=== PATIENT | female | born 1965 | race Caucasian/White ===

== ENCOUNTER 2020-10-12 15:22 | Outpatient (CLI) | payer BC, SELFPAY ==
--- NOTE | 2020-10-12 15:33 | ECG_ITS ---
Measurements Intervals [place] Rate: 60 P: 48 HI: 191 QRS: -7 QRSD: 96 T: 9 QT: 402 QTc: 403 Interpretive Statements SINUS RHYTHM POSSIBLE LEFT ATRIAL ENLARGEMENT INCOMPLETE RIGHT BUNDLE BRANCH BLOCK CONSIDER INFERIOR INFARCT, AGE INDETERMINATE ABNORMAL ECG Electronically Signed On 10-12-2020 16:02:58 CDT by Gabriele Parham D.O.
[2020-10-12 16:31] LABS: Hematocrit 40.5 % (37.0-47.0)
[2020-10-12 16:43] LABS: Albumin Level 4.4 g/dL (3.5-5.1); Estimated Glomerular Filt Rate > 60; Glucose 95 mg/dL (65-105)
[2020-10-12 16:44] LABS: Hemoglobin A1C 5.6 % (<5.7)
[2020-10-12 16:46] LABS: Urine Cotinine NEGATIVE
== END 2020-10-12 15:23 | disposition home or self-care (01) ==
LOC: ANHLAB 15:24
PROVIDERS: PCP Family Medicine; Visit Provider Orthopaedic Surgery
DX: Z01.818 Encounter for other preprocedural examination (principal); M17.11 Unilateral primary osteoarthritis, right knee; E78.5 Hyperlipidemia, unspecified; I45.10 Unspecified right bundle-branch block
CPT/HCPCS: 80307; 82040; 82565; 82947; 83036; 85014; 85018; 93005

== ENCOUNTER 2020-10-26 11:44 | Outpatient (CLI) | payer BC, SELFPAY ==
[2020-10-26 12:54] LABS: Basophils Percent Auto 0.3 % (0.2-1.2); Eosinophils Absolute Auto 0.1 K/mm3 (0-0.3); Hematocrit 42.5 % (37.0-47.0); Hemoglobin 13.8 g/dL (12.0-15.0); Immature Granulocyte Absolute 0.03 K/mm3 (0.00-0.031); Immature Granulocyte Percent A 0.2 % (0-0.5); Lymphocytes Absolute Auto 4.67 K/mm3 (0.9-3.2); Lymphocytes Percent Auto 37.6 % (18.3-44.2); Mean Corpuscular HGB Conc 32.5 g/dl (32-36); Mean Corpuscular Hemoglobin 29.9 pg (26-34); Mean Platelet Volume 10.2 fl (7.4-10.4); Monocytes Absolute Auto 0.7 K/mm3 (0.1-0.6); Monocytes Percent Auto 5.3 % (2.6-8.5); Neutrophils Absolute Auto 6.9 K/mm3 (1.3-6.7); Neutrophils Percent Auto 55.6 % (45.5-73.1); Platelet Count Result 350 k/mm3 (150-375); Red Blood Count 4.62 M/mm3 (4.2-5.4); Red Cell Distribution Width 13.1 % (11.5-14.5); White Blood Count 12.4 K/mm3 (4.5-10.0)
== END 2020-10-26 11:45 | disposition home or self-care (01) ==
LOC: ANHSURGERY 11:46
PROVIDERS: PCP Family Medicine; Visit Provider Orthopaedic Surgery
DX: Z01.812 Encounter for preprocedural laboratory examination (principal); M17.11 Unilateral primary osteoarthritis, right knee
CPT/HCPCS: 36415; 85025; 86850; 86900; 86901; 87081

== ENCOUNTER → 2020-11-05 09:38 | Outpatient (CLI) | payer BC, SELFPAY ==
[2020-11-05 19:16] LABS: SARS-CoV-2 RNA PCR Negative
== END ==
PROVIDERS: PCP Family Medicine; Visit Provider Orthopaedic Surgery
DX: Z01.812 Encounter for preprocedural laboratory examination (principal); Z20.822 Contact with and (suspected) exposure to COVID-19
CPT/HCPCS: C9803; U0003; U0005

== ENCOUNTER 2020-11-08 01:22 | Day surgery (SDC) | payer BC, SELFPAY ==
[2020-10-26 11:53] VITALS: BMI 34.9
[2020-10-26 12:27] VITALS: BP 131/82; PULSE 67; RESP 16; TEMP 36.4; O2SAT 99
[2020-11-08] VITALS (14 sets, daily range): BP systolic 110–154; BP diastolic 57–83; PULSE 55–80; RESP 12–18; TEMP 36.1–37; O2SAT 94–100; BMI 35.1
--- NOTE | ~2020-11-08 | XR_ITS ---
EXAMINATION: XR knee RT 2V DATE: 11/08/2020 10:11 INDICATION: Postoperative evaluation following right total knee arthroplasty. TECHNIQUE: Anteroposterior and lateral views of the right knee were obtained. COMPARISON: None. FINDINGS: Right total knee arthroplasty with patellar resurfacing appears well seated and in near anatomic alig nment. No fractures identified. Expected postoperative subcutaneous and intra-articular gas. IMPRESSION: 1. Right total knee arthroplasty, negative for postoperative purposes. Reviewed, dictated and finalized at location A.
[2020-11-08] MEDS: ACETAMINOPHEN 500 MG TABLET 1000 MG PO (06:29)
[2020-11-08] MEDS: LACTATED RINGERS 1,000 ML 30 ML IV CONT ×2 (06:29→10:00)
--- NOTE | 2020-11-08 06:52 | WPDANESEPPF ---
Anes - Initial Pre Proc Eval Procedure: Operation Date: 11/08/20 07:30 Proposed Procedures p Right Total Knee Arthroplasty - Rupesh Hernandez MD Date/Time: 11/08/20 06:52 Surgeon: Rupesh Hernandze MD Pre Op Diagnosis: Primary OA Right knee Patient Data Age: 55 Gender: F Height: 1.74 m Weight: 105.8 kg Last Vital Signs Temp 36.3 C L 11/08/20 06:37 Pulse 65 11/08/20 06:37 Resp 16 11/08/20 06:37 BP 125/76 11/08/20 06:37 Pulse Ox 100 11/08/20 06:37 Allergies Allergy/AdvReac Type Severity Reaction Status Date / Time Penicillins Allergy Severe HIVES Verified 11/08/20 05:53 Home Medications Medication Instructions Recorded Confirmed Type calcium carbonate-vitamin D3 250 1 tablet PO DAILY 09/13/20 11/08/20 History mg-125 unit tablet B soouowb-G-JI-min #26-soybean 2 tablet PO DAILY 10/26/20 11/08/20 History [Menopause Support] acetaminophen [Tylenol Arthritis 1,300 mg PO Q8H PRN 10/26/20 11/08/20 History Pain] loperamide [Imodium A-D] 2 mg PO QID PRN 10/26/20 11/08/20 History Patient hx anesthesia problems: none Family hx anesthesia problems: none PMFSH Past Medical History Medical History (Updated 10/12/20 @ 14:47 by Rupesh Hernandez MD) Anxiety disorder Arthritis Arthritis of both knees Hyperlipidemia Insomnia Surgical History Surgical History (Updated 09/30/20 @ 17:15 by Jaci Calvo) History of arthroscopic knee surgery (~2018) Rt History of back surgery (~2005) History of carpal tunnel surgery (~2002) Rt History of carpal tunnel surgery of left wrist (~2003) History of elbow surgery (~2003) Rt - Tendon Repair History of rotator cuff surgery (~05/2020) & Biceps Repair - Lt History of tonsillectomy (~1972) History of tubal ligation (~03/2000) Hx laparoscopic cholecystectomy Social History Social History (Updated 09/13/20 @ 14:47 by Lindsay Trammell, RT(R)) Smoking packs per day: 1 Smoking cigarettes per day: 20.0 Years smoked: 15 Smoking pack-years: 15.00 Smoking status: Former smoker Tobacco type: cigarettes Additional smoking assessment comments: DENIES ANY FORM OF TOBACCO USE Alcohol intake: current Drinks per week: 2 Substance use: current Substance use type: marijuana Other substance usage details: MARIJUANA GUMMIES. STARTED ABOUT 6 MONTHS AGO. 2 GUMMIES EVERY OTHER DAY Last use: 10/25/20 Living arrangements: with family Spiritual care concerns: No Anes - Eval Final PreProcedure Day of Procedure 11/08/20 06:52 Patient weight: obese Heart: regular rate and rhythm Lungs: clear to auscultation and normal air movement Airway: Mallampati scale class II Neurological: alert and oriented Last oral intake: >/= 8 hours ASA classification: II Emergent: no Anesthetic plan: proceed Anesthesia type and monitoring: general LMA and standard monitoring Informed Consent: The patient's anesthetic plan and its attendant risks and benefits were discussed with the patient/family/POA. Questions were solicited and answers provided to the satisfaction of the patient/family/POA.
[2020-11-08] MEDS: TRANEXAMIC ACID 1,000MG/ISO100 1,000 MG/100 ML BAG 200 MG IVPB (06:59)
--- NOTE | 2020-11-08 07:10 | WPDHPUPDATE1 ---
History and Physical Update Update Date/Time: 11/08/20 07:10 History and Physical has been reviewed, including an updated exam of the patient. There are NO changes in the patient's condition. Risks, benefits, and alternatives have been discussed and questions answered. Patient agrees to proceed with procedure.
--- NOTE | 2020-11-08 07:27 | WPDANESPNB ---
Anes - Peripheral Nerve Block Date/Time: 11/08/20 07:27 I have discussed with the patient/family/POA the placement of a peripheral nerve block for post-operative pain management, including associated risks, benefits, complications, and side effects. Alternative methods of post-operative analgesia were detailed. Questions were solicited and answers provided to the satisfaction of the patient/family/POA. Time-Out: A pre-procedural Time-Out was completed immediately before starting the procedure and confirmed: Patient Identification, Site, Procedure, Patient Position and the Availability of Requisite Equipment. Clinical Indications: Acute post-operative pain management requested by the operative surgeon. Nerve Block Insertion Note Anes-nerve block: adductor canal right Patient position: supine Skin prep: chlorhexidine Needle: 22 gauge, stimulating, insulated echogenic needle. Needle length: 80 mm Technique: ultrasound Injectate: bupivacaine 0.5% with epi 5 mcg/ml (30cc - no epi) Observations: tolerated well Complications: none Procedure start time:: 722 Procedure end time:: 725
[2020-11-08] MEDS: ceFAZolin 2 GM/D5W 50 ML 2 GM/50 ML BAG IVPB (07:30)
--- NOTE | 2020-11-08 09:42 | PM.PROC ---
Procedure Note - Detailed Date of procedure: 11/08/20 Pre-op diagnosis: Primary OA Right knee Post-op diagnosis: same Procedure performed: Total knee arthroplasty Description of procedure: Press fit high demand. Satisfactory bone quality. Mild medial release. Trochlear dysplasia. Standard bone resections. PCL quality very good. Implants: Taj Triathlon size 4 press-fit femur, size 5 Tritanium press fit tibia, 11mm CR X3, polyethylene insert, 35 mm asymmetric Tritanium metal backed patellar component. Anesthesia: GETA and regional (subsartorial nerve block) Surgeon: Rupesh Hernandez MD Customer Support Coordinator: Carlota Shirley PA-C Estimated blood loss (mL): 400 Drains: No Complications: None Condition: stable Disposition: PACU Findings: OPERATIVE DETAILS: The patient was given a nerve block preoperatively, and then brought to the operating room. A general anesthetic was administered. The leg was prepped and draped in the usual sterile fashion. The limb was elevated and the tourniquet inflated to 300 mmHg during initial exposure. A longitudinal incision was created along the medial border of the patella and patellar tendon, and trivector approach to the knee was performed. A moderate medial release was taken. The knee was then flexed. The osteophytes were carefully removed. The intramedullary guide was placed in the femoral canal. The distal femoral resection was then taken with the oscillating saw. The collateral ligaments were carefully protected. The tibia was carefully exposed. The jig was applied, and the proximal tibia was resected at 3 degrees according to preoperative plan. The knee was balanced in extension. Appropriate releases were taken where needed. The anterior cruciate ligament and meniscal remnants were removed. The posterior cruciate ligament was preserved. The patella was measured. Patellar resection was carried out with the oscillating saw. The lug holes drilled. The femur was sized and rotation assessed using a combination of gap balancing, posterior referencing, and the AP axis. The 4 in 1 cutting block was used to finish the femoral cuts after equal gaps were assured. The lug holes were drilled. The osteophytes were carefully removed from the back of the knee. The knee was copiously irrigated periodically throughout the procedure. The meniscal remnants were removed. The spacer block was used to confirm equal flexion and extension gaps. Further releases were performed as needed. The tibia was sized and broached. The bony surfaces were prepared for cementing with pulsatile lavage. The real tibial component was impacted into position followed by press fitting the femoral component. The patella component was press-fit. Patellar tracking was carefully assessed. No additional releases were required. The wound was closed with #1 Vycril suture, #2 Quill suture, 0-Quill suture, and 2-0 Quill suture followed by Steri-Strips. A sterile bulky dressing was applied. Meticulous hemostasis was maintained throughout the procedure. [The aquamantis device was utilized.] There were no complications. The patient was extubated and brought to the recovery room in stable condition after the application of sterile dressing with Adelso bandage.
[2020-11-08] MEDS: fentaNYL CITRATE INJ (*CRX) 100 MCG/2 ML VIAL 25 MCG IV PUSH ×8 (10:12→10:51)
--- NOTE | 2020-11-08 11:25 | ADMGEN ---
This patient, oSl Boateng, was admitted to 2 Medical Room 243-01 from PACU report received from Silvia BARNES. Patient/family oriented to hospital policies and general routines including ID bracelet, bed and alarms, visiting hours, pain management, procedures, bathroom and other care routines, personal items, smoking policy, room service/diet, and visiting hours. Information on how to activate the Rapid Response Team has been discussed. Patient/Family are encouraged to report perceived risks to care and to ask questions if they do not understand what they are told or what they should do.
[2020-11-08] MEDS: SODIUM CHLORIDE 0.9% IV 1,000 ML 125 ML IV CONT ×2 (11:32→20:05)
[2020-11-08] MEDS: oxyCODONE HCL (*CRX) 5 MG TAB IR PO ×3 (11:42→23:09)
[2020-11-08] MEDS: ONDANSETRON INJ 4 MG/2 ML VIAL IV PUSH ×3 (13:56→23:14)
[2020-11-08] MEDS: MELOXICAM 7.5 MG TABLET PO (17:00)
[2020-11-08] MEDS: DOCUSATE SODIUM 100 MG CAPSULE PO (17:00)
[2020-11-08] MEDS: ASPIRIN 81 MG ENTERIC TABLET PO (17:00)
[2020-11-08] MEDS: oxyCODONE HCL (*CRX) 5 MG TAB IR 10 MG PO (19:58)
[2020-11-09] MEDS: SODIUM CHLORIDE 0.9% IV 1,000 ML 125 ML IV CONT (00:27)
[2020-11-09 00:35] VITALS: BP 118/64; PULSE 71; RESP 16; TEMP 36.6; O2SAT 99
[2020-11-09] MEDS: oxyCODONE HCL (*CRX) 5 MG TAB IR PO ×2 (03:28→07:29)
[2020-11-09] MEDS: ONDANSETRON INJ 4 MG/2 ML VIAL IV PUSH ×3 (03:28→11:39)
[2020-11-09 05:16] LABS: Basophils Absolute Auto 0.1 K/mm3 (0.0-0.1); Basophils Percent Auto 0.4 % (0.2-1.2); Eosinophils Absolute Auto 0.1 K/mm3 (0-0.3); Eosinophils Percent Auto 0.6 % (0-4.4); Hematocrit 29.7 % (37.0-47.0); Hemoglobin 9.7 g/dL (12.0-15.0); Immature Granulocyte Absolute 0.05 K/mm3 (0.00-0.031); Immature Granulocyte Percent A 0.4 % (0-0.5); Lymphocytes Absolute Auto 4.74 K/mm3 (0.9-3.2); Lymphocytes Percent Auto 38.1 % (18.3-44.2); Mean Corpuscular HGB Conc 32.7 g/dl (32-36); Mean Corpuscular Hemoglobin 29.8 pg (26-34); Mean Corpuscular Volume 91.4 fl (80-100); Mean Platelet Volume 9.8 fl (7.4-10.4); Monocytes Absolute Auto 0.9 K/mm3 (0.1-0.6); Monocytes Percent Auto 7.2 % (2.6-8.5); Neutrophils Absolute Auto 6.6 K/mm3 (1.3-6.7); Neutrophils Percent Auto 53.3 % (45.5-73.1); Platelet Count Result 257 k/mm3 (150-375); Red Blood Count 3.25 M/mm3 (4.2-5.4); White Blood Count 12.4 K/mm3 (4.5-10.0)
[2020-11-09 05:28] LABS: Anion Gap 0 mmol/L (8-16); Blood Urea Nitrogen 7 mg/dL (7-17); Calcium 8.7 mg/dL (8.4-10.2); Carbon Dioxide 30 mmol/L (22-30); Chloride 111 mmol/L (98-107); Estimated CRCL calculation 115 ml/min; Estimated Glomerular Filt Rate > 60; Glucose 103 mg/dL (65-105); Potassium 3.7 mmol/L (3.4-5.0); Sodium 141 mmol/L (137-145)
[2020-11-09 06:31] VITALS: BP 112/66; PULSE 66; RESP 16; TEMP 36.5; O2SAT 97
[2020-11-09] MEDS: ASPIRIN 81 MG ENTERIC TABLET PO (07:56)
[2020-11-09] MEDS: MELOXICAM 7.5 MG TABLET PO (07:56)
[2020-11-09] MEDS: DOCUSATE SODIUM 100 MG CAPSULE PO (07:57)
[2020-11-09] MEDS: CALCIUM/VITAMIN D 250 MG TABLET 1 TABLET PO (07:57)
[2020-11-09 09:00] VITALS: O2SAT 97
--- NOTE | 2020-11-09 09:29 | P.PNAN_ITS ---
Anes - Prog Note Post-Op Date/Time: 11/09/20 09:29 Cardiovascular status: normal Respiratory status: normal Airway patency: baseline Mental status: baseline Post-Op hydration status: normal Vital Signs: Last Vital Signs Temp 36.5 C 11/09/20 06:31 Pulse 66 11/09/20 06:31 Resp 16 11/09/20 06:31 BP 112/66 11/09/20 06:31 Pulse Ox 97 11/09/20 09:00 Pain Score (VAS): 09/14 I/O: Intake & Output 11/08/20 11/09/20 11/09/20 23:59 07:59 15:59 Intake Total 1238 550 180 Output Total 100 Balance 1138 550 180 Laboratory Tests 11/09/20 04:57 11/09/20 04:57 11/09/20 11/09/20 04:57 04:57 WBC 12.4 H RBC 3.25 L Hgb 9.7 L D Hct 29.7 L MCV 91.4 MCH 29.8 MCHC 32.7 RDW 13.0 Plt Count 257 MPV 9.8 Immature Gran % (Auto) 0.4 Neut % (Auto) 53.3 Lymph % (Auto) 38.1 [place] % (Auto) 7.2 Eos % (Auto) 0.6 Baso % (Auto) 0.4 Lymph # (Auto) 4.74 H [place] # (Auto) 0.9 H Eos # (Auto) 0.1 Baso # (Auto) 0.1 Abs Immat Gran (auto) 0.05 H Absolute Neuts (auto) 6.6 Absolute Nucleated RBC 0.0 Nucleated RBC % 0.0 Sodium 141 Potassium 3.7 Chloride 111 H Carbon Dioxide 30 Anion Gap 0 L BUN 7 Creatinine 0.60 L Estim Creat Clear Calc 115 Estimated GFR > 60 Glucose 103 Calcium 8.7 Post-procedural complaints: none Patient Feedback: Patient satisfied with anesthetic care.
[2020-11-09 10:00] VITALS: BP 123/64; PULSE 68; RESP 16; TEMP 36.6; O2SAT 100
[2020-11-09] MEDS: oxyCODONE HCL (*CRX) 5 MG TAB IR 10 MG PO (11:38)
--- NOTE | 2020-11-09 13:07 | PM.DS ---
DS: Admitting Diagnosis Admitting Diagnosis Admitting Diagnosis: OA knee Right DS: Discharge Diagnosis Discharge Diagnosis (1) Status post total right knee replacement: Code(s): Z96.651 - Presence of right artificial knee joint Status: Acute Assessment and Plan: Patient progressing well from Total knee arthroplasty on the right. Pain controlled with oral pain medications. No complications. Did well with initial PT/OT. Patient does have soft bone, recommend walker for the full 3 weeks. She did have some N/V last night. She was able to keep her breakfast down. Zofran helped. Will send patient home with Proximiantfran. Follow up in office. See blue instruction sheet for details. Take Aspirin 81 mg BID for 2 weeks for DVT prophylaxis. Hold Tylenol while she is taking Percocet as prescribed. DS: Summary Hospital Course Reason for hospitalization: Total knee arthroplasty Hospital Course: Patient tolerated procedure well. Has had initial PT/OT. She did have some N/V last night. She was able to keep her breakfast down. Zofran helped. Will send patient home with Proximiantan. Status at Discharge Functional status at discharge: uses cane/walker Overall status at discharge: patient is progressing back to baseline Time Spent with Patient Time attestation: Total time spent providing and/or coordinating discharge services: 35 minutes Exam Narrative: Exam Narrative: Overweight female. Resting comfortably in bed. Wearing compression socks bilaterally. Dressing intact with no drainage. Moderate swelling. Small area of ecchymosis. No erythema. No hematoma. Range of motion limited due to pain. Calf nontender. Neurologic status intact. No varicosities. Distal pulses palpable. DS: Data Data Completed and Pending Labs on day of discharge: Labs from last 24 hours 11/09/20 11/09/20 04:57 04:57 WBC 12.4 H RBC 3.25 L Hgb 9.7 L D Hct 29.7 L MCV 91.4 MCH 29.8 MCHC 32.7 RDW 13.0 Plt Count 257 MPV 9.8 Immature Gran % (Auto) 0.4 Neut % (Auto) 53.3 Lymph % (Auto) 38.1 [place] % (Auto) 7.2 Eos % (Auto) 0.6 Baso % (Auto) 0.4 Lymph # (Auto) 4.74 H [place] # (Auto) 0.9 H Eos # (Auto) 0.1 Baso # (Auto) 0.1 Abs Immat Gran (auto) 0.05 H Absolute Neuts (auto) 6.6 Absolute Nucleated RBC 0.0 Nucleated RBC % 0.0 Sodium 141 Potassium 3.7 Chloride 111 H Carbon Dioxide 30 Anion Gap 0 L BUN 7 Creatinine 0.60 L Estim Creat Clear Calc 115 Estimated GFR > 60 Glucose 103 Calcium 8.7 Discharge Plan Discharge Patient Disposition: Home, Self-Care Discharge Instructions: See instruction sheet Patient Instructions: Knee Replacement (DC) Stand Alone Forms: General Discharge Instructions Follow-up/Referrals: Carlota Shirley PA [Physician Laboratory Engineer] - Discharge Medications: New aspirin 81 mg tablet,delayed release (DR/EC) 81 mg PO BID 14 Days Qty: 28 RF: 0 oxycodone-acetaminophen 5-325 mg tablet 1 - 2 tablet PO Q4-6H MDD 6 PRN (Reason: pain) Qty: 30 RF: 0 ondansetron HCl [Zofran] 4 mg tablet 4 mg PO Q8H PRN (Reason: nausea and vomiting) Qty: 20 RF: 0 Continued calcium carbonate-vitamin D3 250-125 mg-unit tablet 1 tablet PO DAILY RF: 0 B djqamzm-W-HM-min #26-soybean 15-200-40 unit-mcg-mg Tablet 2 tablet PO DAILY RF: 0 loperamide [Imodium A-D] 2 mg Capsule 2 mg PO QID PRN (Reason: Diarrhea) RF: 0 Held acetaminophen [Tylenol Arthritis Pain] 650 mg Tablet Extended Release 1,300 mg PO Q8H PRN (Reason: Pain) RF: 0 Hold Instructions: Resume on 12/07/20. Hold while taking Percocet
== END 2020-11-09 13:25 | disposition home or self-care (01) ==
LOC: ANHSURGERY 05:51 → ANH2MED 11:20
PROVIDERS: PCP Family Medicine; Visit Provider Orthopaedic Surgery
PROC: (CPT 27447; principal; 2020-11-08 07:30)
DX: M17.11 Unilateral primary osteoarthritis, right knee (principal); G89.18 Other acute postprocedural pain; R11.2 Nausea with vomiting, unspecified; E78.5 Hyperlipidemia, unspecified; F41.1 Generalized anxiety disorder; Z87.891 Personal history of nicotine dependence; F12.90 Cannabis use, unspecified, uncomplicated; E66.9 Obesity, unspecified; Z68.35 Body mass index [BMI] 35.0-35.9, adult
CPT/HCPCS: 27447; 64447; 36415; 73560; 80048; 85025; 97110; 97116; 97161; 97165; 97535; A9270; C1776; J0131; J0171; J0690; J1100; J1170; J1885; J2250; J2270; J2405; J2704; J2795; J3010; J7030; J7120

== ENCOUNTER 2021-07-13 11:53 | Outpatient (CLI) | payer BC, SELFPAY ==
[2021-07-13 13:04] LABS: Basophils Percent Auto 0.2 % (0.2-1.2); Eosinophils Absolute Auto 0.1 K/mm3 (0-0.3); Hematocrit 39.9 % (37.0-47.0); Immature Granulocyte Absolute 0.03 K/mm3 (0.00-0.031); Immature Granulocyte Percent A 0.3 % (0-0.5); Lymphocytes Absolute Auto 3.68 K/mm3 (0.9-3.2); Lymphocytes Percent Auto 36.4 % (18.3-44.2); Mean Corpuscular HGB Conc 32.6 g/dl (32-36); Mean Corpuscular Hemoglobin 30.2 pg (26-34); Mean Corpuscular Volume 92.6 fl (80-100); Mean Platelet Volume 9.3 fl (7.4-10.4); Monocytes Absolute Auto 0.6 K/mm3 (0.1-0.6); Monocytes Percent Auto 6.2 % (2.6-8.5); Neutrophils Absolute Auto 5.7 K/mm3 (1.3-6.7); Neutrophils Percent Auto 55.9 % (45.5-73.1); Platelet Count Result 269 k/mm3 (150-375); Red Blood Count 4.31 M/mm3 (4.2-5.4); Red Cell Distribution Width 13.5 % (11.5-14.5); White Blood Count 10.1 K/mm3 (4.5-10.0)
[2021-07-13 13:15] LABS: Alanine Aminotransferase 34 U/L (4-35); Albumin Level 4.4 g/dL (3.5-5.1); Alkaline Phosphatase 117 U/L (38-126); Anion Gap 9 mmol/L (8-16); Aspartate Amino Transferase 29 U/L (14-36); Bilirubin,Total 0.5 mg/dL (0.2-1.3); Blood Urea Nitrogen 12 mg/dL (7-17); Calcium 9.8 mg/dL (8.4-10.2); Carbon Dioxide 26 mmol/L (22-30); Chloride 103 mmol/L (98-107); Estimated Glomerular Filt Rate > 60; Glucose 106 mg/dL (65-110); Potassium 3.7 mmol/L (3.4-5.0); Sodium 138 mmol/L (137-145)
[2021-07-13 13:31] LABS: INR 0.9; Prothrombin Time 12.3 Seconds (11.1-14.7)
[2021-07-13 13:32] LABS: Partial Thromboplastin Time 26.9 SECONDS (22.3-36.8)
== END 2021-07-13 11:54 | disposition home or self-care (01) ==
LOC: ANHSURGERY 11:57
PROVIDERS: PCP Family Medicine; Visit Provider Urology
DX: N81.4 Uterovaginal prolapse, unspecified (principal)
CPT/HCPCS: 36415; 80053; 85025; 85610; 85730; 86850; 86900; 86901; 87086; 87088

== ENCOUNTER 2021-07-24 00:14 | Day surgery (SDC) | payer BC, SELFPAY ==
[2021-07-13 12:03] VITALS: BMI 33.8
[2021-07-13 12:27] VITALS: BP 131/80; PULSE 70; RESP 16; TEMP 36.7; O2SAT 98
--- NOTE | 2021-07-13 12:30 | PC.NURSE ---
Report to the Outpatient Waiting Room, entrance under the green pavilion located off [facility], at time __0900 on date _07/24/21 . OR Time:1100 . - You and your visitor will be asked a series of questions to screen for COVID 19 for your protection. - A mask is required within the hospital. - Only one visitor is allowed at this time. Patient visitors will be guided where to wait when not with patient. Preoperative COVID Testing Requirements: No COVID Test needed if: (proof is required; if not received patient will have Rapid Test prior to entry) - Patient has received COVID Vaccine at least 14 days prior to procedure date or - Patient has positive COVID test result within last 90 days of surgery date. COVID Test needed if above criteria is not met If not COVID vaccinated a COVID test must be conducted within 72 hours of surgery and patient is asked to isolate self from time of testing until procedure. You will go to the [employer] [facility] Testing [facility] for your COVID testing. The [employer] [facility] site is located at the corner of [address] [facility]. You will only be called if COVID results are positive and your surgeon may reschedule your elective surgery date. Patients may have clear liquids (water, carbonated beverages, clear teas, apple juice) until 3 hours prior to surgery with a maximum of 20 ounces. - No food from midnight until time of surgery - Infants may have breast milk until 4 hours before surgery, infant formula 6 hours prior to surgery. - Children will be allowed to drink immediately following surgery. If applicable, please bring a bottle or sippy cup to assist with drinking. Juice, water, soda, and popsicles are readily available. For infants on formula, please bring formula the day of surgery. Pacifiers are allowed. Take the following medications with a SIP of water the morning of surgery: _NONE Medications to discontinue per physician ALL VITAMINS 3 DAYS PRE OP Date to take last dose_07/20/21 Please no make-up, nail albanian, hairspray, perfume, deodorant, or body powder the day of surgery. No jewelry (including any body piercings) or valuables the day of surgery, leave them at home. Please take a shower or bath the night before, or the morning of, surgery with an antibacterial soap. Wear comfortable, loose fitting clothing. Children are encouraged to wear pajamas. - Jewelry must be removed prior to entering the operating room. Rings and piercings that are not removed may be cut off. - The hospital will not accept responsibility for valuables. - Please leave all valuables, including medications, at home the day of surgery. If you are going home after surgery, a licensed livery car driver must drive you home. - NO public transportation without another adult. - We recommend that an adult stay with you for 24 hours following discharge. - We also recommend that you do not drive, make important decision, drink alcoholic beverages, or take any drugs that were not prescribed by your health care provider for at least 24 hours after your discharge time. For Pediatric surgeries, we recommend two adults accompany the child home (only one inside the building at this time). Follow any additional instructions given to you from your surgeon. VERBAL instructions given to __PATIENT and asked if any additional questions and then verbalized understanding. Patient advised to call surgeon office or pre surgery nurse liaison [phone] if any additional questions.
--- NOTE | 2021-07-21 08:30 | PM.IMHP ---
H&P: HPI History of Present Illness Date/Time: 07/21/21 08:30 56-year-old with uterine prolapse as well as stress urinary incontinence Chief Complaint: Uterine prolapse, stress incontinence Review of Systems Review of Systems: All systems reviewed & are unremarkable except as noted in HPI and below PMFSH Past Medical History Medical History Anxiety disorder Arthritis Arthritis of both knees Hyperlipidemia Insomnia Surgical History Surgical History History of arthroscopic knee surgery (~2018) Rt History of back surgery (~2005) History of carpal tunnel surgery (~2002) Rt History of carpal tunnel surgery of left wrist (~2003) History of elbow surgery (~2003) Rt - Tendon Repair History of rotator cuff surgery (~05/2020) & Biceps Repair - Lt History of tonsillectomy (~1972) History of tubal ligation (~03/2000) Hx laparoscopic cholecystectomy Social History Social History Smoking packs per day: 1 Smoking cigarettes per day: 20.0 Years smoked: 15 Smoking pack-years: 15.00 Smoking status: Former smoker Tobacco type: cigarettes Smoking end date: 07/08/97 Additional smoking assessment comments: DENIES ANY FORM OF TOBACCO USE Alcohol intake: current Drinks per week: 1 Substance use: current Substance use type: marijuana Other substance usage details: THC GUMMIES AT HS Last use: 10/25/20 Gender identity (if verbalized by the patient): Female Sexual Orientation (if Verbalized by the Patient): Straight or Heterosexual Spiritual care concerns: No Meds Home Medications and Allergies Home Medications Medication Instructions Recorded Confirmed Type loperamide [Imodium A-D] 2 mg PO QID PRN 10/26/20 07/13/21 History cholecalciferol (vitamin D3) 75 mcg PO DAILY 07/13/21 07/13/21 History Allergies Allergy/AdvReac Type Severity Reaction Status Date / Time Penicillins Allergy Severe HIVES Verified 07/13/21 12:09 Exam Narrative: Cystocele +3. Silver at 0. Urethral mobility noted Assessment and Plan Assessment and plan (1) Uterine prolapse: Code(s): N81.4 - Uterovaginal prolapse, unspecified Status: Acute Assessment and Plan: Robotic sacral colpopexy (2) SARBJIT (stress urinary incontinence, female): Code(s): N39.3 - Stress incontinence (female) (male) Status: Acute Assessment and Plan: Urethral sling
[2021-07-24] VITALS (11 sets, daily range): BP systolic 110–157; BP diastolic 66–76; PULSE 56–84; RESP 8–20; TEMP 36–37.2; O2SAT 93–100
--- NOTE | 2021-07-24 07:13 | WPDHPUPDATE1 ---
History and Physical Update Update Date/Time: 07/24/21 07:13 History and Physical has been reviewed, including an updated exam of the patient. There are NO changes in the patient's condition. Risks, benefits, and alternatives have been discussed and questions answered. Patient agrees to proceed with procedure.
[2021-07-24] MEDS: ACETAMINOPHEN 500 MG TABLET 1000 MG PO (09:20)
[2021-07-24] MEDS: LACTATED RINGERS 1,000 ML 30 ML IV CONT ×2 (09:25→14:51)
[2021-07-24] MEDS: KETOROLAC 15 MG/ML VIAL (*BKC) IV PUSH ×2 (09:27→18:33)
--- NOTE | 2021-07-24 10:02 | WPDANESEPPF ---
Anes - Initial Pre Proc Eval Procedure: Operation Date: 07/24/21 11:00 Proposed Procedures p Robotic Sacrocolpopexy, Urethral Sling - Angus Beyer MD s Laparoscopic Assisted Hysterectomy with Bilateral Salpingo-oophorectomy - Julio Costello MD Date/Time: 07/24/21 10:02 Surgeon: Angus Beyer MD Pre Op Diagnosis: complete uterine prolapse Patient Data Age: 56 Gender: F Height: 1.73 m Weight: 101 kg Last Vital Signs Temp 36.7 C 07/13/21 12:27 Pulse 70 07/13/21 12:27 Resp 16 07/13/21 12:27 BP 131/80 07/13/21 12:27 Pulse Ox 98 07/13/21 12:27 Allergies Allergy/AdvReac Type Severity Reaction Status Date / Time Penicillins Allergy Severe HIVES Verified 07/24/21 09:19 Home Medications Medication Instructions Recorded Confirmed Type loperamide [Imodium A-D] 2 mg PO QID PRN 10/26/20 07/24/21 History cholecalciferol (vitamin D3) 75 mcg PO DAILY 07/13/21 07/24/21 History Patient hx anesthesia problems: none Family hx anesthesia problems: none Results Review: All pre-operative results and documents have been reviewed as part of the pre-operative evaluation. [facility] Past Medical History Medical History Anxiety disorder Arthritis Arthritis of both knees Hyperlipidemia Insomnia Surgical History Surgical History History of arthroscopic knee surgery (~2018) Rt History of back surgery (~2005) History of carpal tunnel surgery (~2002) Rt History of carpal tunnel surgery of left wrist (~2003) History of elbow surgery (~2003) Rt - Tendon Repair History of rotator cuff surgery (~05/2020) & Biceps Repair - Lt History of tonsillectomy (~1972) History of tubal ligation (~03/2000) Hx laparoscopic cholecystectomy Social History Social History Smoking packs per day: 1 Smoking cigarettes per day: 20.0 Years smoked: 15 Smoking pack-years: 15.00 Smoking status: Former smoker Tobacco type: cigarettes Smoking end date: 07/08/97 Additional smoking assessment comments: DENIES ANY FORM OF TOBACCO USE Alcohol intake: current Drinks per week: 1 Substance use: current Substance use type: marijuana Other substance usage details: THC GUMMIES AT HS Last use: 10/25/20 Living arrangements: with family Gender identity (if verbalized by the patient): Female Sexual Orientation (if Verbalized by the Patient): Straight or Heterosexual Spiritual care concerns: No Anes - Eval Final PreProcedure Day of Procedure 07/24/21 10:02 Patient weight: obese Heart: regular rate and rhythm Lungs: clear to auscultation and normal air movement Airway: Mallampati scale class II Neurological: alert and oriented Last oral intake: >/= 8 hours ASA classification: III Emergent: no Anesthetic plan: proceed Anesthesia type and monitoring: general ETT and standard monitoring Results Review: All pre-operative results and documents have been reviewed as part of the pre-operative evaluation. Informed Consent: The patient's anesthetic plan and its attendant risks and benefits were discussed with the patient/family/POA. Questions were solicited and answers provided to the satisfaction of the patient/family/POA.
[2021-07-24] MEDS: SCOPOLAMINE 1.5 MG PATCH TRANSDERM (10:32)
--- NOTE | 2021-07-24 10:33 | WPDHPUPDATE1 ---
History and Physical Update Update Date/Time: 07/24/21 10:33 History and Physical has been reviewed, including an updated exam of the patient. There are NO changes in the patient's condition. Risks, benefits, and alternatives have been discussed and questions answered. Patient agrees to proceed with procedure.
[2021-07-24] MEDS: ceFAZolin 2 GM/D5W 50 ML 2 GM/50 ML BAG IVPB (11:20)
[2021-07-24] MEDS: metroNIDAZOLE 500 MG/ISO 100ML 500 MG/100 ML BAG 100 MG IVPB ×2 (11:20→18:38)
--- NOTE | 2021-07-24 12:35 | W.PM.PROC2 ---
Procedure Note - Detailed Date of Procedure 07/24/21 Pre-op Diagnosis Pelvic organ prolapse Post-op Diagnosis same Procedure Performed laparoscopic supracervical hysterectomy and bilateral salpingo-oophorectomy. Surgeon Julio Costello MD Anesthesia general Indications pelvic organ prolapse Findings small uterus, normal appearing ovaries and normal-appearing tubes. Description of Procedure This patient was taken to the operating room. She was prepped and draped in the dorsal lithotomy position after induction of general anesthesia. a tenaculum was applied to the vaginal mucosa at the cervicovaginal juncture posteriorly. This was done with a speculum and tenaculum. The speculum was placed. The cervix was grasped with a tenaculum. Trocars were placed by Dr. Beyer. The location of the ureters was identified at the pelvic brim. The ovaries were grasped and raised. The infundibulopelvic ligaments were cauterized and transected with LigaSure cautery. This was all done in a bilateral fashion. The para ovarian tissue was cauterized and transected with LigaSure cautery bilaterally. Moving around the ovary into the broad ligament the tissue was cauterized transected with LigaSure cautery. The round ligaments were cauterized transected with LigaSure cautery this was all done in a bilateral fashion. In a stepwise fashion along the lateral aspects of the uterus the round ligament and broad ligaments were cauterized transected down to the level of the uterine arteries. The cervix was transected using unipolar cautery. The uterus and bilateral tubes and ovaries were laid off to the side for Dr. Beyer to remove later. The remainder of the procedure was performed by Dr. Beyer again he finished the surgery. Estimated Blood Loss 10 Drains Yes Packing No Pathology yes Complications No immediate complications Condition stable Disposition floor
--- NOTE | 2021-07-24 12:35 | SUR.OPER ---
Dr Beyer insertion of ports 1150 to 1157
--- NOTE | 2021-07-24 13:32 | SUR.OPER ---
PATIENT POSITIONING MAINTAINED AND UNCHANGED.
[2021-07-24] MEDS: BUPIVACAINE/EPINEPHRINE 0.25% 10 ML VIAL 12 ML INFILTRATE (14:22)
--- NOTE | 2021-07-24 14:42 | W.PM.PROC2 ---
Procedure Note - Detailed Date of Procedure 07/24/21 Pre-op Diagnosis complete uterine prolapse Stress incontinence Post-op Diagnosis same Procedure Performed Robotic assisted laparoscopic sacral colpopexy Urethral sling Cystoscopy Surgeon Angus Beyer MD Anesthesia general Indications A woman with uterine prolapse as well as stress incontinence. She desires surgical correction. She is here for the above. She understands risks of bleeding, infection, diskitis, damage to surrounding organs, bowel injury, bowel obstruction, mesh related complications including exposure and extrusion, postoperative voiding dysfunction including incontinence and retention, need for ancillary procedures, dyspareunia, recurrence of prolapse, and other perioperative intraoperative postoperative complications. She agrees to proceed. Findings See below Description of Procedure She was correctly identified. Informed consent obtained. She from the operating room. She was given general anesthesia. She was given appropriate perioperative antibiotics. She was placed a low lithotomy position. Pressure points were padded. A time-out performed. I marked out the skin 3 fingerbreadths cephalad to the umbilicus. I anesthetized the skin. I incised the skin. I dissected down to the fascia. I grasped the fascia with Paulette clamps. I entered the fascia sharply in a Uribe type technique. I placed sutures for later fascial closure. I placed a midline trocar. I examined the abdomen. There is no sign of any injury. Under direct vision I placed 2 additional trocars in the right upper quadrant and 2 additional trocars the left upper quadrant. She was placed in steep Trendelenburg. Her operations agent completed their portion of the procedure. Please see that operative report for details. The robot was then docked. I then sat at the console. The Sizer in the vagina created plane on the anterior and posterior vaginal wall. I took great care not to injure the vagina, bladder, or rectum. I introduced the mesh into the abdomen. I sewed the anterior leaflet of mesh on the anterior vaginal wall. I sewed the posterior leaflet of mesh on the posterior vaginal wall. This was done with several sutures of 2 0 [place]. I reflected the colon laterally. I opened the posterior peritoneum over the sacral promontory. I carried this into the cul-de-sac. I freed up the edges for later retroperitonealization. I located the anterior longitudinal ligament the sacrum. I cleaned off all fatty tissues. I then tensioned my mesh appropriately. I did a vaginal exam the bedside. I assured prolapse reduction without undue tension. I then sewed the proximal leaflet of mesh onto the anterior longitudinal ligament of the sacrum with several sutures of 2 0 [place]. I then used a 2 0 Monocryl to completely and meticulously retroperitonealized all mesh. I allowed the colon to go back to its normal anatomic location. There is no sign of any impingement. The specimen was then removed. All ports removed. Fascia was tied down. Skin was closed with Monocryl and surgical glue. She was repositioned and prepped for urethral sling. I marked out the inner thigh incisions. I anesthetized the skin and made the incisions. I then anesthetized the anterior vaginal wall at the mid urethra. I made a 1 cm incision. I dissected out laterally taking great care not to injure the refilled vaginal wall. I passed the helical trocars. I did this 1st on the left and then on the right. This was done from the thigh incision towards the vaginal incision. Sling was connected to the trocars and brought out the thigh incision. I tensioned the sling appropriately. I cut and the plastic sheaths. I closed the incision with 2 0 Vicryl. I then performed cystoscopy. There was no tumors or surgical artifact. Both ureters were seen to excrete clear yellow urine. There is no surgical artifact in the bladder or urethra.
--- NOTE | 2021-07-24 15:23 | SUR.PHASEI ---
Simple mask removed at 1520.
[2021-07-24] MEDS: fentaNYL CITRATE INJ (*CRX) 100 MCG/2 ML VIAL 25 MCG IV PUSH ×2 (15:36→15:40)
[2021-07-24] MEDS: ONDANSETRON INJ 4 MG/2 ML VIAL IV PUSH (16:27)
--- NOTE | 2021-07-24 16:42 | PC.NURSE ---
This patient, Sol Boateng, was received from PACU on 07/24/21 at 1642. Patient/family oriented to unit policies and routines
[2021-07-24] MEDS: KCL 20 MEQ/D5/0.45% SOD CHL 1,000 ML 100 ML IV CONT (17:15)
[2021-07-24] MEDS: diphenhydrAMINE HCl INJ 50 MG/ML VIAL 25 MG IV PUSH (17:17)
[2021-07-24] MEDS: HYDROcodone/acetaminophen (*CRX) 5-325 MG TABLET 1 TAB PO (18:45)
[2021-07-25] MEDS: HYDROcodone/acetaminophen (*CRX) 5-325 MG TABLET 1 TAB PO ×3 (00:09→09:58)
[2021-07-25 00:15] VITALS: BP 113/65; PULSE 83; RESP 18; TEMP 36.9; O2SAT 96
[2021-07-25] MEDS: metroNIDAZOLE 500 MG/ISO 100ML 500 MG/100 ML BAG 100 MG IVPB (03:32)
[2021-07-25 03:40] VITALS: BP 117/59; PULSE 78; RESP 18; TEMP 36.5; O2SAT 96
[2021-07-25] MEDS: ONDANSETRON INJ 4 MG/2 ML VIAL IV PUSH ×2 (04:51→09:41)
[2021-07-25 07:00] VITALS: PULSE 69; RESP 18; O2SAT 99
--- NOTE | 2021-07-25 07:37 | PM.GYNPNOP ---
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 - A/P Postoperative Procedures: Procedures Operation Date: 07/24/21 11:00 Actual Procedure Side Surgeon p Robotic Sacrocolpopexy Not Applicable Angus Beyer MD s Laparoscopic Assisted Hysterectomy with Bilateral Salpingo-oophorectomy Bilateral Julio Costello MD s Urethral Sling,Cystoscopy Not Applicable Angus Beyer MD Postoperative day: 1 Postoperative status: doing well and other (Tollerating Regular Diet) Postoperative plan: routine post-op care and discharge Time Spent With Patient Time: Total time spent is greater than 50% in coordination of care (as documented) at patient's floor/unit and/or counseling patient: Time with patient: 15 - 25 minutes 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- PN:Subj Post-Op Subjective Date/time seen: 07/25/21 07:37 Subjective: patient reports feeling better, pain is well controlled and patient is tolerating oral intake Exam Const: General: cooperative, healthy appearing, comfortable and no acute distress Resp: Auscultation: no crackles, no rales, no rhonchi and no wheezes Cardio: Rhythm: regular rhythm Heart sounds: no click and no murmurs GI: Inspection: non-distended Auscultation: normal bowel sounds Other: Incisions - CDI Extrem: General: normal to inspection, no pedal edema and no calf tenderness 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 - PN: Obj Data Vital Signs Vital Signs: Vital Signs - 24 hr 07/24/21 09:01 07/24/21 14:51 07/24/21 15:05 Temperature 97.3 F L 98.1 F Pulse Rate 70 67 56 L Respiratory Rate 20 8 L 14 Blood Pressure 124/66 157/75 H 140/69 Pulse Oximetry 98 100 100 07/24/21 15:20 07/24/21 15:35 07/24/21 15:50 Temperature Pulse Rate 56 L 57 L 56 L Respiratory Rate 16 14 13 Blood Pressure 120/70 142/71 H 124/69 Pulse Oximetry 98 93 95 07/24/21 16:05 07/24/21 16:20 07/24/21 16:35 Temperature Pulse Rate 75 67 84 Respiratory Rate 12 12 16 Blood Pressure 110/68 122/76 131/73 Pulse Oximetry 100 95 98 07/24/21 17:00 07/24/21 19:56 07/25/21 00:15 Temperature 96.8 F L 99 F 98.5 F Pulse Rate 77 72 83 Respiratory Rate 18 20 18 Blood Pressure 151/76 H 116/69 113/65 Pulse Oximetry 97 97 96 07/25/21 03:40 Temperature 97.7 F Pulse Rate 78 Respiratory Rate 18 Blood Pressure 117/59 L Pulse Oximetry 96 Intake/Output Intake/Output: Intake & Output 07/22/21 07/23/21 07/24/21 07/25/21 23:59 23:59 23:59 23:59 Intake Total 750 800 Output Total 270 3000 Balance 480 -2200 Meds/Results Medications: Active Medications Generic Name Dose Route Start Last Admin Trade Name Freq PRN Reason Stop Dose Admin Acetaminophen 650 mg 07/24/21 16:42 Acetaminophen 325 Mg Tablet PO Q4H PRN Mild Pain (1-3) or Fever Hydrocodone Bitart/Acetaminophen 1 tab 07/24/21 16:42 07/25/21 04:51 Hydrocodone/Acetaminophen (*Crx) 5-325 Mg Tablet PO 1 tab Q4H PRN Administration Pain Rated 4-5 Diphenhydramine HCl 25 mg 07/24/21 16:42 07/24/21 17:17 Diphenhydramine Hcl Inj 50 Mg/Ml Vial IV PUSH 25 mg Q6H PRN Administration Itching Docusate Sodium 100 mg 07/25/21 09:00 Docusate Sodium 100 Mg Capsule PO DAILY CARMEN Enoxaparin Sodium 30 mg 07/25/21 09:00 Enoxaparin 30 Mg/0.3 Ml Syringe SUB-Q DAILY CARMEN Metronidazole 500 mg in 100 mls @ 100 mls/hr 07/24/21 19:00 07/25/21 03:32 Flagyl 500 Mg/Iso Soln 100 Ml IVPB 100 mls/hr Q8H CARMEN Administration Potassium Chloride/Dextrose/Sod Cl 1,000 mls @ 100 mls/hr 07/24/21 16:42 07/24/21 17:15 Kcl 20 Meq/D5/0.45% Sod Chl IV CONT 100 mls/hr .Q10H CARMEN Administration Levofloxacin/Dextrose 500 mg in 100 mls @ 100 mls/hr 07/25/21 09:00 Levaquin 500 Mg/D5w 100 Ml IVPB Q24H PRN IF UNABLE TO TAKE PO Ketorolac Tromethamine 15 mg 07/24/21 16:42 07/24/21 18:33 Ketorolac 15 Mg/Ml Vial (*Bkc) IV PUSH 07/25/21 16:43 15 mg Q8H PRN Administration Pain Rated 5 or Less Levofloxacin 500 mg 07/25/21 09:00 Levofloxacin 500 Mg Tablet PO QAM FOR[facility]LY [facility] Morphine S
[2021-07-25 08:30] VITALS: BP 111/60; PULSE 69; RESP 18; TEMP 36.8; O2SAT 99
[2021-07-25] MEDS: DOCUSATE SODIUM 100 MG CAPSULE PO (09:45)
== END 2021-07-25 11:55 | disposition home or self-care (01) ==
LOC: ANHSURGERY 10:37 → ANHOB2 16:44
PROVIDERS: Obstetrics & Gynecology; PCP Family Medicine; Visit Provider Urology
PROC: (CPT 57425; principal; 2021-07-24 11:00)
PROC: 0UT9FZZ Resection of Uterus, Via Natural or Artificial Opening With Percutaneous Endoscopic Assistance (ICD-10-PCS; CPT 58542; 2021-07-24 11:00)
PROC: (CPT 57288; 2021-07-24 11:00)
DX: N81.3 Complete uterovaginal prolapse (principal); N39.3 Stress incontinence (female) (male); N80.0 Endometriosis of uterus; N70.11 Chronic salpingitis; N73.6 Female pelvic peritoneal adhesions (postinfective); N83.8 Other noninflammatory disorders of ovary, fallopian tube and broad ligament; E78.5 Hyperlipidemia, unspecified; F41.9 Anxiety disorder, unspecified; Z87.891 Personal history of nicotine dependence; F12.90 Cannabis use, unspecified, uncomplicated; E66.9 Obesity, unspecified; Z68.33 Body mass index [BMI] 33.0-33.9, adult
CPT/HCPCS: 57288; 57425; 58542; S2900 ×2; 88307; 99199; A9270; C1771; C1781; C9290; J0360; J0690; J1100; J1170; J1200; J1885; J2250; J2405; J2704; J2710; J3010; J3480; J7030; J7120

== ENCOUNTER 2023-03-25 10:59 | Outpatient (CLI) | payer BC, SELFPAY ==
--- NOTE | ~2023-03-25 | MR_ITS ---
MRI of the left shoulder Technique: Axial proton-density fat-sat images, coronal proton density fat-sat and T2 fat-sat images, and sagittal T1-weighted and T2 fat-sat images were acquired. Clinical History: Pain Findings: There is no significant degenerative change at the AC joint. There is evidence of postopera tive change at the AC joint itself. Coracoclavicular, coracoacromial, and coracohumeral ligaments are intact. Supraspinatus and infraspinatus tendons are intact, without partial or full-thickness tear. Subscapul damon tendon is intact. There is evidence of prior biceps tenodesis. No definite labral tear identified. Inferior glenohumeral ligament is intact. No effusion or degenerative change of the glenohumeral join t. No fluid distention of the subacromial/subdeltoid bursa. No muscle atrophy or edema. Impression: Prior biceps tenodesis. Additional postoperative change about the AC joint. Correlate with surgical h istory. No rotator cuff or labral tear seen. Reviewed, dictated and finalized at location . Impression: Prior biceps tenodesis. Additional postoperative change about the AC joint. Cor relate with surgical history. No rotator cuff or labral tear seen.
== END 2023-03-25 11:00 ==
LOC: MICIMG 11:00
PROVIDERS: PCP Family Medicine; Visit Provider Orthopaedic Surgery
DX: Z98.890 Other specified postprocedural states (principal); M25.512 Pain in left shoulder; M54.12 Radiculopathy, cervical region
CPT/HCPCS: 73221

== ENCOUNTER 2023-10-08 12:19 | Outpatient (CLI) | payer BC, SELFPAY ==
--- NOTE | ~2023-10-08 | MR_ITS ---
MRI of the right shoulder Technique: Axial proton-density fat-sat images, coronal proton density fat-sat and T2 fat-sat images, and sagittal T1-weighted and T2 fat-sat images were acquired. Clinical History: Rotator cuff tear Findings: There is mild to moderate AC joint degenerative change with bony productive change at the d istal clavicle. No significant subcarinal spur. Coracoclavicular, coracoacromial, and coracohumeral l igaments appear intact. There is advanced supraspinatus and infraspinatus tendinosis. There is low to moderate grade articula r surface partial tearing at the distal supraspinatus tendon insertion, measuring approximately 1.0 x 1.5 cm in extent, involving up to approximately 50-60% of the total tendon thickness. No full-thickn ess tear of the tendon identified. Subscapularis tendon is intact with mild tendinosis. Tendon of the long head of the biceps is intact. No labral tear identified. Inferior glenohumeral ligament is intact. No significant joint effusion or degenerative change of the glenohumeral joint. There is minimal fluid in the subacromial/subdeltoid bursa. There is marked fatt y atrophy of the teres minor muscle belly. Impression: Advanced supraspinatus and infraspinatus tendinosis, with low to moderate grade articular surface par tial tear of the distal supraspinatus tendon, as detailed above. Marked fatty atrophy of teres minor muscle belly. [id number] AC joint degenerative change. Reviewed, dictated and finalized at location . Impression: Advanced supraspinatus and infraspinatus tendinosis, with low to moderate grade articular surface partial tear of the distal supraspinatus tendon, as detailed above. Marked fatty atrophy of teres minor muscle belly. [id number] AC joint degenerative change.
== END 2023-10-08 12:20 | disposition home or self-care (01) ==
PROVIDERS: PCP Family Medicine; Visit Provider Orthopaedic Surgery
DX: M75.111 Incomplete rotator cuff tear or rupture of right shoulder, not specified as traumatic (principal); M67.813 Other specified disorders of tendon, right shoulder; M19.011 Primary osteoarthritis, right shoulder
CPT/HCPCS: 73221

== ENCOUNTER 2023-11-28 01:06 | Day surgery (SDC) | payer BC, SELFPAY ==
[2023-11-20 10:16] VITALS: BMI 28.8
--- NOTE | 2023-11-20 10:42 | PC.NURSE ---
Report to the Outpatient Waiting Room, entrance under the green pavilion located off [facility], at 0900 on 11-28-23. Planned Procedure Time: 1100. Time changes happen often and if your time is changed the preop area will call you the afternoon before. - You and your visitor will be asked to self-screen and do not enter if you have any COVID symptoms. - A mask is optional within the hospital at this time. Patients may have clear liquids (water, carbonated beverages, clear teas, apple juice) until 3 hours prior to surgery with a maximum of 20 ounces. 0800 - No food from midnight until time of surgery - Infants may have breast milk until 4 hours before surgery, formula 6 hours prior to surgery. - Children will be allowed to drink immediately following surgery. If applicable, please bring a bottle or sippy cup to assist with drinking. Juice, water, soda, and popsicles are readily available. For infants on formula, please bring formula the day of surgery. Pacifiers are allowed. Take the following medications with a SIP of water the morning of surgery: Tramadol if needed DO NOT STOP ANY OF YOUR OTHER PRESCRIPTION MEDICATIONS PRIOR TO SURGERY ?EXCEPT THE FOLLOWING Medications to discontinue per physician: Vitamins and supplements; ibuprofen Date to take last dose: 11-24-22; 11-21-23 Please no make-up, nail barbadian, hairspray, perfume, deodorant, or body powder the day of surgery. No jewelry (including any body piercings) or valuables the day of surgery, leave them at home. Please take a shower or bath the night before, or the morning of, surgery with an antibacterial soap. Wear comfortable, loose fitting clothing. Children are encouraged to wear pajamas. - Jewelry must be removed prior to entering the operating room. Rings and piercings that are not removed may be cut off. - The hospital will not accept responsibility for valuables. - Please leave all valuables, including medications, at home the day of surgery. If you are going home after surgery, a licensed electric lift truck driver must drive you home. - NO public transportation without another adult if you receive anesthesia. - We recommend that an adult stay with you for 24 hours following discharge. - We also recommend that you do not drive, make important decision, drink alcoholic beverages, or take any drugs that were not prescribed by your health care provider for at least 24 hours after your discharge time. For Pediatric surgeries, we recommend two adults accompany the child home. Follow any additional instructions given to you from your surgeon. If you or anyone in your household have experienced Covid symptoms in the past week, please notify your surgeon or the nurse liaison at the phone number below for possible testing. Telephone instructions given to Sol Boateng and asked if any additional questions and then verbalized understanding. Patient advised to call surgeon office or pre surgery nurse liaison [phone] if any additional questions.
[2023-11-28] VITALS (11 sets, daily range): BP systolic 108–139; BP diastolic 57–82; PULSE 53–75; RESP 18–20; TEMP 36.1–36.2; O2SAT 94–98
[2023-11-28] MEDS: LACTATED RINGERS 1,000 ML 30 ML IV CONT ×2 (09:36→13:39)
[2023-11-28] MEDS: ACETAMINOPHEN 500 MG TABLET 1000 MG PO (10:17)
[2023-11-28] MEDS: KETOROLAC 15 MG/ML VIAL (*BKC) IV PUSH (10:19)
--- NOTE | 2023-11-28 10:52 | WPDHPUPDATE1 ---
History and Physical Update Update Date/Time: 11/28/23 10:52 History and Physical has been reviewed, including an updated exam of the patient. There are NO changes in the patient's condition. Risks, benefits, and alternatives have been discussed and questions answered. Patient agrees to proceed with procedure.
--- NOTE | 2023-11-28 11:37 | WPDANESEPPF ---
Anes - Initial Pre Proc Eval Procedure: Operation Date: 11/28/23 11:00 Proposed Procedures p Right Shoulder Arthroscopy, Rotator Cuff Repair with Subacromial Decompression - Rupesh Hernandez MD Date/Time: 11/28/23 11:37 Surgeon: Rupesh Hernandez MD Pre Op Diagnosis: Part Rot cuff tear, impingement syndrome Patient Data Age: 58 Gender: F Height: 1.73 m Weight: 88.3 kg Last Vital Signs Temp 97.1 F L 11/28/23 09:17 Pulse 55 L 11/28/23 09:17 Resp 20 11/28/23 09:17 BP 119/73 11/28/23 09:17 Pulse Ox 98 11/28/23 09:17 O2 Del Method Room Air 11/28/23 09:17 Allergies Allergy/AdvReac Type Severity Reaction Status Date / Time Penicillins Allergy Intermediate HIVES Verified 11/28/23 09:08 Home Medications Medication Instructions Recorded Confirmed Type cholecalciferol (vitamin D3) 75 75 mcg PO WEEKLY 07/13/21 11/28/23 History mcg (3,000 unit) tablet escitalopram oxalate 20 mg tablet 20 mg PO DAILY 11/20/23 11/28/23 History ibuprofen 200 mg tablet 400 mg PO Q6H PRN Pain 11/20/23 11/28/23 History tramadol 50 mg tablet 50 mg PO DAILY PRN pain 11/20/23 11/28/23 History oxycodone-acetaminophen 5 mg-325 1 - 2 tablet PO Q4-6H PRN pain #30 11/28/23 Rx mg tablet tabs Patient hx anesthesia problems: none Family hx anesthesia problems: none Results Review: All pre-operative results and documents have been reviewed as part of the pre-operative evaluation. FORMERLY [facility] Past Medical History Medical History Anxiety disorder Arthritis Arthritis of both knees Cerebral aneurysm severe headache in 04/2020 - aneurysm found on CT, currently being monitored - no intervention required yet History of depression Hyperlipidemia Insomnia Surgical History Surgical History History of arthroscopic knee surgery (~2018) Rt History of back surgery (~2005) History of carpal tunnel surgery (~2002) Rt History of carpal tunnel surgery of left wrist (~2003) History of elbow surgery (~2003) Rt - Tendon Repair History of rotator cuff surgery (~05/2020) & Biceps Repair - Lt History of tonsillectomy (~1972) History of tubal ligation (~03/2000) Hx laparoscopic cholecystectomy Social History Social History Smoking packs per day: 1 Smoking cigarettes per day: 20.0 Years smoked: 10 Smoking pack-years: 10.00 Smoking status: Current every day smoker Tobacco type: cigarettes Second hand tobacco smoke exposure: No Smoking end date: 07/08/97 Additional smoking assessment comments: DENIES ANY FORM OF TOBACCO USE Alcohol intake: never Drinks per week: 1 Substance use: current Substance use type: marijuana Other substance usage details: daily use Last use: 10/25/20 Do You Feel Safe in your Home?: Yes Lack of Transportation: No Lack of Food: Never True Current Housing: I Have Housing Concerned About Future Housing: No Difficulty Paying Gas/Electric Bills: No Difficulty Paying for Meds: No Currently Unemployed: No Education: High School Diploma/GED Difficulty w/ Childcare or Family Care: No Living arrangements: with family Gender identity (if verbalized by the patient): Female Sexual Orientation (if Verbalized by the Patient): Straight or Heterosexual Spiritual care concerns: No Anes - Eval Final PreProcedure Day of Procedure 11/28/23 11:37 Patient weight: normal Heart: regular rate and rhythm Lungs: clear to auscultation Airway: Mallampati scale class II Neurological: alert and oriented Last oral intake: >/= 8 hours ASA classification: II Emergent: no Anesthetic plan: proceed Anesthesia type and monitoring: general ETT and standard monitoring Results Review: All pre-operative results and documents have been reviewed as part of the pre-operative evaluation. Smoker, 1
--- NOTE | 2023-11-28 11:38 | WPDANESPNB ---
Anes - Peripheral Nerve Block Date/Time: 11/28/23 11:38 I have discussed with the patient/family/POA the placement of a peripheral nerve block for post-operative pain management, including associated risks, benefits, complications, and side effects. Alternative methods of post-operative analgesia were detailed. Questions were solicited and answers provided to the satisfaction of the patient/family/POA. Time-Out: A pre-procedural Time-Out was completed immediately before starting the procedure and confirmed: Patient Identification, Site, Procedure, Patient Position and the Availability of Requisite Equipment. Clinical Indications: Acute post-operative pain management requested by the operative surgeon. Nerve Block Insertion Note Anes-nerve block: interscalene right Patient position: supine Skin prep: chlorhexidine Needle: 22 gauge, stimulating, insulated echogenic needle. Needle length: 80 mm Technique: ultrasound Injectate: other (Bupiv 0.5%, 15 mls. ) Observations: tolerated well Complications: none Procedure start time:: 112 Procedure end time:: 1132
[2023-11-28] MEDS: ceFAZolin 2 GM/D5W 50 ML 2 GM/50 ML BAG IVPB (11:41)
[2023-11-28] MEDS: EPINEPHrine HCL INJ 1 MG/ML AMPUL 3 MG IRRIGATION (13:05)
[2023-11-28] MEDS: fentaNYL CITRATE INJ (*CRX) 100 MCG/2 ML VIAL 25 MCG IV PUSH ×6 (13:52→14:14)
[2023-11-28] MEDS: HYDROmorphone HCL INJ (*CRX) 1 MG/ML SYR 0.25 MG IV PUSH ×3 (14:24→14:37)
[2023-11-28] MEDS: oxyCODONE HCL (*CRX) 5 MG TAB IR PO (15:08)
--- NOTE | 2023-11-28 16:19 | P.OP_ITS ---
Procedure Note - Detailed Date of Procedure 11/28/23 Pre-op Diagnosis Right 1. Partial Rotator cuff tear 2. Impingement syndrome 3. Biceps tendinosis 4. SLAP tear Post-op Diagnosis Other (1. Rotator cuff tear 2. Subacromial impingement 3. Biceps tendinosis 4. Degenerative labral tear) Procedure Performed Right shoulder 1. Arthroscopic rotator cuff repair 2. Arthroscopic subacromial decompression 3. Arthroscopic biceps tenodesis 4. Arthroscopic labral debridement Surgeon Rupesh Hernandez MD Roofing Superintendent Carlota Wood PA-C Anesthesia General and Regional ( interscalene block) Findings High grade articular side rotator cuff tear supraspinatus. Biceps tendinosis and SLAP tear with posterior extension. Debridement of the labrum and arthroscopic tenodesis performed. Rotator cuff repair with Regeneten collagen implant and 5 ALEX soft tissue anchors and 2 PEEK bone anchors. Description of Procedure Preoperative antibiotics were given. An interscalene block was administered in the preoperative area. The patient was bought brought to the operating room. A general anesthetic was administered. The patient was carefully positioned in the beach chair position. The head and neck were carefully positioned. The non operative extremity was also carefully positioned. The shoulder was prepped and draped in the usual sterile fashion. Examination was performed. Standard posterior and anterior arthroscopic portals were established. Inflow achieved with the arthroscopic pump using saline and epinephrine. The glenohumeral joint was carefully inspected. The articular cartilage was normal. Supraspinatus had high-grade articular sided tearing but the rotator cuff cable was intact. The superior labrum was moderately torn but this extended more significantly into the posterior labrum. After debridement the remaining labrum was stable. Due to these changes as well as a large stripe of significant hyperemia noted on the biceps when it was pulled into the joint, it was elected to perform an articular biceps tenodesis arthroscopically. This was performed with a SwiveLock anchor and a locking loop stitch. Attention was turned to the subacromial space. A complete bursectomy was performed. The bursal sided rotator cuff looked very good. There was a small soft spot which was coincident with the marked area of tearing articularly. However the rest of the tissue appeared quite viable and not particularly degenerative. There was modest impingement on the acromion which was treated with an acromioplasty. The medium Regeneten graft was inserted over the partial-thickness tear area of the supraspinatus. An accessory lateral portal was created for medial anchor placement. Five ALEX anchors were placed into the tendon with excellent stability. Two bone peek anchors were placed laterally. The arthroscopic instruments were removed. The wounds were closed with 3-0 Monocryl subcuticular suture and steri strips. There were no complications. A sling was applied and the patient brought to the recovery room. Physician enrichment assistant, Carlota Wood PA-C, required for surgery; including patient positioning, draping, arthroscopic camera operation, maintaining instrument position, anchor placement, wound closure, and dressing and sling placement. Implants Arthrex 4.75 SwiveLock anchor. Patricia and Nephew Regeneten collagen implant. Five ALEX soft tissue anchors. Two peek bone anchors. Estimated Blood Loss 10 Pathology None sent Complications No immediate complications Condition Stable Disposition PACU [facility] Billing Surgery - Charge Forward: Surgery Billing
== END 2023-11-28 15:55 | disposition home or self-care (01) ==
PROVIDERS: PCP Family Medicine; Visit Provider Orthopaedic Surgery
PROC: (CPT 29805; principal; 2023-11-28 11:00)
DX: M75.111 Incomplete rotator cuff tear or rupture of right shoulder, not specified as traumatic (principal); M75.41 Impingement syndrome of right shoulder; M75.81 Other shoulder lesions, right shoulder; M75.21 Bicipital tendinitis, right shoulder; G89.18 Other acute postprocedural pain; I67.1 Cerebral aneurysm, nonruptured; F32.A Depression, unspecified; F41.9 Anxiety disorder, unspecified; Z87.891 Personal history of nicotine dependence; F12.90 Cannabis use, unspecified, uncomplicated
CPT/HCPCS: 29827; 29828; 29826; 64415; A4565; A9270; C1713; J0171; J0690; J1100; J1170; J1596; J1885; J2250; J2405; J2704; J3010; J7120

== ENCOUNTER 2023-12-23 02:56 | Inpatient (IN) | payer BC, SELFPAY ==
--- NOTE | ~2023-12-23 | XR_ITS ---
EXAMINATION: XR sm bowel follow through [facility] DATE: 12/24/2023 13:44 INDICATION: Small bowel obstruction. Crohn's disease. TECHNIQUE: Commissioned Sales Associate radiograph(s) of the abdomen was/were obtained. Oral contrast was administered, and sequential radiographs of the abdomen were obtained until oral contrast was noted to be in the proxi mal colon. 6 fluoroscopic spot images and 7 overhead radiographs of the small bowel were obtained. Fl uoroscopy exposure time was 0.9 minutes. Total DAP was 118.522 Gycm^2 COMPARISON: None. FINDINGS: Commissioned Sales Associate image demonstrates cholecystectomy clips in right upper quadrant. There is also been prior L5 l aminectomy and partial L4 laminectomy with L4-S1 instrumented posterior spinal fusion with bilateral vertical reese and pedicle screw fixation. Transit time from the stomach to proximal colon was approxim ately 30 minutes. There is normal caliber throughout the small bowel. There is irregular mucosal fold thickening at the terminal ileum additional loop of nondilated ileum in the right lower quadrant whi ch could be consistent with provided history of Crohn's disease. This appears to result in a mild str icture at the terminal ileum. IMPRESSION: 1. Mucosal fold thickening couple loops of ileum in the right lower quadrant with suggestion of at le ast mild stricture at the terminal ileum which be consistent with reported history of Crohn's disease . 2. Normal 30 minute transit time to the colon with no dilated bowel to suggest obstruction. Reviewed, dictated and finalized at location A. IMPRESSION: 1. Mucosal fold thickening couple loops of ileum in the right lower quadrant wi th suggestion of at least mild stricture at the terminal ileum which be consist ent with reported history of Crohn's disease. 2. Normal 30 minute transit time to the colon with no dilated bowel to suggest obstruction.
--- NOTE | ~2023-12-23 | XR_ITS ---
EXAMINATION: XR abdomen obstructive series DATE: 12/23/2023 11:21 INDICATION: Small bowel obstruction. Left abdominal pain. TECHNIQUE: Upright and supine views of the abdomen on 3 radiographs were obtained. COMPARISON: None. FINDINGS: There are dilated loops of small bowel. The colon is decompressed. Surgical clips in the ri ght upper quadrant are likely from cholecystectomy. There are changes of posterior fusion procedure i n lumbosacral spine. No free intraperitoneal gas. IMPRESSION: 1. Dilated small bowel, consistent with adynamic ileus versus small bowel obstruction. Reviewed, dictated and finalized at location E. IMPRESSION: 1. Dilated small bowel, consistent with adynamic ileus versus small bowel obstr uction.
--- NOTE | 2023-12-23 02:55 | PM.IMHP ---
H&P: HPI History of Present Illness Date/Time: 12/23/23 02:55 Chief Complaint: ABDOMINAL PAIN Narrative: THIS IS A 58-YEAR-OLD FEMALE WITH PAST MEDICAL HISTORY SIGNIFICANT FOR TOBACCO DEPENDENCE, CROHN'S DISEASE. PATIENT PRESENTED TO OUTSIDE FACILITY EMERGENCY ROOM DUE TO ABDOMINAL PAIN AND CONSTIPATION OF FEW HOURS HAD BEEN IN HER USUAL STATE OF HEALTH UP UNTIL THIS POINT HAD A BOWEL MOVEMENT THAT WAS NORMAL HAD BEEN EATING HER MEALS, DENIES ANY FEVERS, RIGORS, CHILLS, HEMATEMESIS, COFFEE-GROUND EMESIS, BRIGHT RED BLOOD PER RECTUM, MELENA, WEIGHT LOSS. PRELIMINARY WORKUP WAS SIGNIFICANT FOR CT OF ABDOMEN AND PELVIS WITH SMALL BOWEL OBSTRUCTION EXAMINATION: XR abdomen obstructive series DATE: 12/23/2023 11:21 INDICATION: Small bowel obstruction. Left abdominal pain. TECHNIQUE: Upright and supine views of the abdomen on 3 radiographs were obtained. COMPARISON: None. FINDINGS: There are dilated loops of small bowel. The colon is decompressed. Surgical clips in the right upper quadrant are likely from cholecystectomy. There are changes of posterior fusion procedure in lumbosacral spine. No free intraperitoneal gas. IMPRESSION: 1. Dilated small bowel, consistent with adynamic ileus versus small bowel obstruction. Review of Systems Review of Systems: ABDOMINAL PAIN, CONSTIPATION Constitutional: Constitutional: Denies chills, Denies fever(s) and Denies night sweats Eyes: Eyes: Denies change in vision ENT: Denies dysphagia and Denies odynophagia Cardiovascular: Cardiovascular: Denies chest pain Respiratory: Respiratory: Denies cough, Denies excessive phlegm production and Denies dyspnea Gastrointestinal: Gastrointestinal: Reports abdominal pain, Denies melena, Denies hematochezia, Reports constipation, Reports nausea and Denies vomiting Genitourinary: Genitourinary: Denies dysuria Musculoskeletal: Musculoskeletal: Denies myalgias Integumentary/Breasts: Skin/Breast: Denies rash Neurologic: Denies focal weakness and Denies Sensory deficit (Neuro) Psychiatric: Psychiatric: Reports no additional psychiatric complaints and Reports as per HPI Endocrine: Endocrine: Denies cold intolerance, Denies heat intolerance, Denies polyphagia, Denies polydipsia and Denies polyuria Hematologic/Lymphatic: Hematologic/Lymphatic: Reports no additional hematologic/lymphatic complaints and Reports as per HPI Allergic/Immunologic: Allergic/Immunologic: Reports no additional allergic/immunologic complaints and Reports as per HPI PMFSH Past Medical History Medical History Anxiety disorder Arthritis Arthritis of both knees Cerebral aneurysm severe headache in 04/2020 - aneurysm found on CT, currently being monitored - no intervention required yet Crohn's disease History of depression Hyperlipidemia Insomnia Surgical History Surgical History History of arthroscopic knee surgery (~2018) Rt History of back surgery (~2005) History of carpal tunnel surgery (~2002) Rt History of carpal tunnel surgery of left wrist (~2003) History of elbow surgery (~2003) Rt - Tendon Repair History of hysterectomy 2021 - laparoscopic supracervical hysterectomy and bilateral salpingo-oophorectomy History of rotator cuff surgery (~05/2020) & Biceps Repair - Lt History of tonsillectomy (~1972) History of tubal ligation (~03/2000) Hx laparoscopic cholecystectomy Social History Social History (Updated 12/30/23 @ 05:25 by Guadalupe Abel DO) Social History: The patient lives with her , of 30 years, and their black Labrador retriever. They raised 2 daughters and 2 sons. 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 She used to drink an occasional glass a wine but has not done so since onset of her Crohn's symptoms. The she uses marijuana gummies daily. She has smoked up to a pack of cigarettes per day on and off for about 20 year
[2023-12-23 02:58] VITALS: BP 113/68; PULSE 59; RESP 18; TEMP 36.4; O2SAT 97
[2023-12-23 02:59] VITALS: BMI 30.5
[2023-12-23] MEDS: DEXTROSE 5%/0.45% SOD CHL 1,000 ML 75 ML IV CONT ×2 (03:14→17:03)
[2023-12-23] MEDS: MORPHINE SULFATE (*CRX) 2 MG/ML INJ IV PUSH ×3 (03:41→20:33)
[2023-12-23] MEDS: LORazepam INJ (*CRX) 2 MG/ML VIAL 1 MG IV PUSH (03:41)
[2023-12-23 05:53] LABS: Basophils Percent Auto 0.2 % (0.2-1.2); Hematocrit 41.1 % (37.0-47.0); Hemoglobin 13.3 g/dL (12.0-15.0); Immature Granulocyte Percent A 0.8 % (0-0.5); Lymphocytes Absolute Auto 1.61 K/mm3 (0.9-3.2); Lymphocytes Percent Auto 12.6 % (18.3-44.2); Mean Corpuscular HGB Conc 32.4 g/dl (32-36); Mean Corpuscular Hemoglobin 30.6 pg (26-34); Mean Corpuscular Volume 94.7 fl (80-100); Mean Platelet Volume 9.6 fl (7.4-10.4); Monocytes Absolute Auto 0.1 K/mm3 (0.1-0.6); Monocytes Percent Auto 0.9 % (2.6-8.5); Neutrophils Absolute Auto 10.9 K/mm3 (1.3-6.7); Neutrophils Percent Auto 85.5 % (45.5-73.1); Platelet Count Result 307 k/mm3 (150-375); Red Blood Count 4.34 M/mm3 (4.2-5.4); Red Cell Distribution Width 13.3 % (11.5-14.5); White Blood Count 12.7 K/mm3 (4.5-10.0)
[2023-12-23 06:07] LABS: Anion Gap 9 mmol/L (4-12); Blood Urea Nitrogen 12 mg/dL (7-17); Carbon Dioxide 21 mmol/L (22-30); Chloride 109 mmol/L (98-107); Estimated CRCL calculation 104 ml/min; Estimated Glomerular Filt Rate > 60; Glucose 137 mg/dL (65-110); Potassium 4.3 mmol/L (3.4-5.0); Sodium 139 mmol/L (137-145)
[2023-12-23 06:08] LABS: Partial Thromboplastin Time 25.4 Seconds (22.3-36.8)
[2023-12-23 07:00] VITALS: BP 113/57; PULSE 57; RESP 18; TEMP 36.6; O2SAT 96
--- NOTE | 2023-12-23 07:15 | PM.IMPN ---
Progress Note: A&P Assessment and Plan (1) SBO (small bowel obstruction): Code(s): K56.609 - Unspecified intestinal obstruction, unspecified as to partial versus complete obstruction Status: Acute Assessment and Plan: Patient diagnosed with Crohns in August, which is being followed by [facility]. She was started on Imuran, but this had to be held for patients shoulder surgery. Patient states that [facility] plans on starting her on a injection and is currently undergoing the workup. CT abdomen/pelvis from outside facility reports a partial SBO with wall thickening of the loops of the small bowel at the transition point. - No NG placed at this time as patients nausea is well controlled and she has not been vomiting. If she develops vomiting an NG will be placed. - Monitor I&Os, vital signs, neuro status and patient is a fall risk - Monitor serum electrolytes and CBC - Gentle IV fluid resuscitation given the patient's NPO status - P.r.n. Anti emetics, avoid reglan - Obstructive series ordered: 12/22: Dilated small bowel, consistent with adynamic ileus versus small bowel obstruction. - General surgery consulted, no surgical intervention at this time - GI consulted, continue supportive treatment (2) Crohn's disease: Code(s): K50.90 - Crohn's disease, unspecified, without complications Status: Acute Assessment and Plan: Patient diagnosed with Crohns in August, which is being followed by [facility]. She was started on Imuran, but this had to be held for patients shoulder surgery. Patient states that [facility] plans on starting her on a injection and is currently undergoing the workup. Time Spent With Patient Time with patient: 25 - 35 minutes Subjective Date/time seen: 12/23/23 07:15 Interval history: 58 year old female with past medical history of Crohn disease, uterine prolapse, GERD, hyperlipidemia, and anxiety presents to the hospital for abdominal pain and constipation. Patient is pleasant lying comfortably in bed with family at bedside. She states that her nausea has been well controlled since being admitted. Will continue to hold off on NG placement unless she develops vomiting. She was seen by GI and surgery today, no need for intervention at this time. Will continue supportive treatment. Patient still has not had a bowel movement or passed gas. She denies chest pain, shortness of breath, palpitations, and changes in urination. Review of Systems Review of Systems: All systems reviewed & are unremarkable except as noted in HPI and below Exam Narrative: AF HR 57 RR 18 SpO2 96 BP 113/57 General: female in no acute respiratory distress who is nontoxic appearing, lying semi recumbent in bed. HEENT: Normocephalic. Atraumatic. Pupils equal round reactive to light. Extraocular movement intact. Sclera clear and anicteric. No facial asymmetry. Chest: Lungs are clear to auscultation bilaterally. No wheezes or crackles. CV: Heart was regular rate and rhythm. S1-S2. No murmurs, gallops, or rubs. Abd: Abdomen was soft. Tender to palpation. Nondistended. Positive bowel sounds. No organomegaly or masses. Ext: No clubbing, cyanosis, or edema. 2+ DP pulses bilaterally. Neuro: Patient is alert and oriented x4. Cranial nerves 2-12 are intact. Speech is clear. Psych: Normal mood and affect. Patient is pleasant and cooperative. Skin: Warm and dry. No rashes noted. Objective Data Vital Signs Vital Signs: Vital Signs - 24 hr 12/23/23 02:58 12/23/23 03:21 Temperature 97.6 F Pulse Rate 59 L Respiratory Rate 18 Blood Pressure 113/68 Pulse Oximetry 97 Oxygen Delivery Room Air Meds/Results Medications: Active Medications Generic Name Dose Route Start Last Admin Trade Name Freq PRN Reason Stop Dose Admin Enoxaparin Sodium 40 mg 12/23/23 09:00 Enoxaparin 40 Mg/0.4 Ml Syringe SUB-Q DAILY CARMEN Dextrose/Sodium Chloride 1,000 mls @ 75 mls/hr 12/23/23 03:00 12/23/23 03:14 Nguyễn
[2023-12-23 08:00] VITALS: O2SAT 100
--- NOTE | 2023-12-23 10:35 | PM.CNGS ---
Assessment and Plan Assessment and plan (1) SBO (small bowel obstruction): Code(s): K56.609 - Unspecified intestinal obstruction, unspecified as to partial versus complete obstruction Status: Acute Assessment and Plan: CT report from the [facility] was reviewed in her medical chart. It suggests at least a partial small bowel obstruction with small bowel wall thickening at the transition point. This appears to be more likely related to her Crohn's disease that is causing at least a partial obstruction. She has been off her Crohn's medication since early October and her symptoms have been getting progressively worse. Recommend GI consultation to evaluate and treat her Crohn's. Okay to defer NG tube for now, but will need to reconsider NG tube decompression if she begins vomiting again. Will keep her NPO with IV fluids and analgesics. I will order an obstructive series this morning to re-evaluate the obstruction. Will continue to monitor with serial abdominal exams. (2) Crohn's disease: Code(s): K50.90 - Crohn's disease, unspecified, without complications Status: Acute Assessment and Plan: Consult GI for management of her Crohn's. She follows with GI in [place] and was diagnosed with Crohn's in August, but has been off her medication since October for shoulder surgery. (3) Tobacco dependence: Code(s): F17.200 - Nicotine dependence, unspecified, uncomplicated Status: Acute Plan I have discussed the patient's case and plan of care with Dr. Pennington. Thank you for allowing us to see the patient in consultation and we will continue to follow along with you. History of Present Illness Consult details Consult date: 12/23/23 Reason for consult: other (Small bowel obstruction) Requesting physician: Sakina Burnette MD Narrative: This is a 58-year-old woman who we have been asked to see in surgical consultation for a small bowel obstruction. She was directed admitted from [facility] in [place] last night. She was diagnosed with Crohn's disease in August and started on oral medication daily, but cannot recall the name of the medication. She stopped taking this early October in preparation for right shoulder surgery. She has been off this medication since and noticed that her symptoms were progressively getting worse. She recently had a follow-up with GI and is currently 3 weeks postop from her shoulder surgery and reportedly doing well. GI was planning on starting her on some injections for her Crohn's disease, but they have not been approved yet. Yesterday, around 2:00 pm she developed bloating and generalized abdominal pain that was more severe than her chronic pain. She developed nasuea and had multiple episodes of vomiting that was reportedly bilious-appearing. She then developed a migraine headache. She has a known brain aneurysm that is being monitored with annual imaging, and she was concerned that there was an issue with her aneurysm which ultimately brought her into [place] ER for evaluation. Medical records were reviewed in her chart. WBC count was 22,[address] scan of the abdomen and pelvis report reads as at least a partial small bowel obstruction with wall thickening of a loop of small bowel at the transition point that could reflect infectious or inflammatory etiology. She reports vomiting twice in the ER, but never having an NG tube placed or attempted. She was then transferred to [facility]. She has been made NPO and started on IV fluids. She reports her abdominal pain and bloating have improved after her vomiting. Her last BM was yesterday morning and small. Denies flatus through the night or this morning. Previous abdominal surgeries include a laparoscopic cholecystectomy and laparoscopic hysterectomy and bilateral salpingo-oophorectomy. She denies history of a small bowel obstruction in the past. No other complaints at this time. Review of Systems Review of Systems: All
[2023-12-23] MEDS: ONDANSETRON INJ 4 MG/2 ML VIAL IV PUSH ×2 (11:49→20:33)
--- NOTE | 2023-12-23 12:02 | P.CONGI_ITS ---
I, Russell Miller MD, have provided a substantive portion of the care of this patient and discussed the patient with my Nurse Practitioner. I have reviewed any new relevant radiographic and laboratory results including medications. I agree with her documentation as noted below.?I personally performed the medical decision making and much of the history and exam for this encounter. briefly, she was diagnosed with small bowel Crohn's August this year after having colonoscopy and MRE, patient told that found stricture in colonoscopy that required dilation ? ileum . She was on imuran and plan was to start at some point on biologics. She is seeing by Dr English. Imuran has been on hold on preparation to possible shoulder surgery. Here with new onset of severe abdominal pain with n/v, CT scan showed possible SOB. She is doing much better right now, responding to medical support, no need of NGT and no more vomiting. Plan is continue same treatment, advance diet once she feels better and to follow-up with her GI doctor to start biologic hopefully soon to prevent similar episodes. Assessment and Plan Assessment and plan (1) Abnormal digestive system diagnostic imaging: Code(s): R93.3 - Abnormal findings on diagnostic imaging of other parts of digestive trac t Status: Acute (2) Crohn's disease: Qualifiers: Gastrointestinal tract location: small intestine Digestive disease complication type: other complication Qualified Code(s): K50.018 - Crohn's disease of small intestine with other complication Code(s): K50.90 - Crohn's disease, unspecified, without complications Status: Acute (3) Generalized abdominal pain: Code(s): R10.84 - Generalized abdominal pain Status: Acute (4) Nausea and vomiting: Qualifiers: Vomiting type: projectile vomiting Qualified Code(s): R11.12 - Projectile vomiting Code(s): R11.2 - Nausea with vomiting, unspecified Status: Acute (5) Weight loss: Code(s): R63.4 - Abnormal weight loss Status: Acute (6) Chronic diarrhea: Code(s): K52.9 - Noninfective gastroenteritis and colitis, unspecified Status: Acute Plan 1) Abnormal imaging digestive/ small-bowel Crohn's disease / SBO /bloating/ nausea and vomiting /weight loss/ diarrhea: Per patient she had a colonoscopy performed in July, results unknown. given the patient's description it catarino nds as if she had an MR enterography in August and was diagnosed with small bowel Crohn's. She has been seeing [facility] for her GI care. After diagnosis she was started on Imuran 50 mg daily but was only taking this for approximately a month before it was discontinued due to impending shoulder surgery in October. She is currently being worked up to start a biologic and states that she has already had her workup including a negative hepatitis panel and TB. prior to her son Crohn's diagnosis she was having 10-12 liquid bowel movements daily and while on Imuran was having 5-6. Since discontinuing Imuran her bowel frequency has been slowly increasing. CT performed at outside facility showed small bowel inflammation and small bowel obstruction. Abdominal x-ray today showed dilated small bowel consistent with adynamic ileus versus small-bowel obstruction. BMP and CBC normal except WBCs at 13. She states she has lost approximately 35 lb over the past 3 months. She is having abdominal pain that she described as an intermittent sharp burning sensation to the left and right of her umbilicus. This pain became very severe yesterday which prompted her ER visit but this pain has improved since admission. She had multiple episod
--- NOTE | 2023-12-23 12:02 | WPDGICN ---
Assessment and Plan Assessment and plan (1) Abnormal digestive system diagnostic imaging: Code(s): R93.3 - Abnormal findings on diagnostic imaging of other parts of digestive tract Status: Acute (2) Crohn's disease: Qualifiers: Gastrointestinal tract location: small intestine Digestive disease complication type: other complication Qualified Code(s): K50.018 - Crohn's disease of small intestine with other complication Code(s): K50.90 - Crohn's disease, unspecified, without complications Status: Acute (3) Generalized abdominal pain: Code(s): R10.84 - Generalized abdominal pain Status: Acute (4) Nausea and vomiting: Qualifiers: Vomiting type: projectile vomiting Qualified Code(s): R11.12 - Projectile vomiting Code(s): R11.2 - Nausea with vomiting, unspecified Status: Acute (5) Weight loss: Code(s): R63.4 - Abnormal weight loss Status: Acute (6) Chronic diarrhea: Code(s): K52.9 - Noninfective gastroenteritis and colitis, unspecified Status: Acute Plan 1) Abnormal imaging digestive/ small-bowel Crohn's disease / SBO /bloating/ nausea and vomiting /weight loss/ diarrhea: Per patient she had a colonoscopy performed in July, results unknown. given the patient's description it sounds as if she had an MR enterography in August and was diagnosed with small bowel Crohn's. She has been seeing [facility] for her GI care. After diagnosis she was started on Imuran 50 mg daily but was only taking this for approximately a month before it was discontinued due to impending shoulder surgery in October. She is currently being worked up to start a biologic and states that she has already had her workup including a negative hepatitis panel and TB. prior to her son Crohn's diagnosis she was having 10-12 liquid bowel movements daily and while on Imuran was having 5-6. Since discontinuing Imuran her bowel frequency has been slowly increasing. CT performed at outside facility showed small bowel inflammation and small bowel obstruction. Abdominal x-ray today showed dilated small bowel consistent with adynamic ileus versus small-bowel obstruction. BMP and CBC normal except WBCs at 13. She states she has lost approximately 35 lb over the past 3 months. She is having abdominal pain that she described as an intermittent sharp burning sensation to the left and right of her umbilicus. This pain became very severe yesterday which prompted her ER visit but this pain has improved since admission. She had multiple episodes of nausea and vomiting prior to her ER visit but denies any episodes since her admission here. Her abdominal bloating has been improving. She denies any hematochezia or melena. symptomatically improving since admission surgery saw patient and does not recommend NG decompression at this time unless symptoms worsen obstructive series already ordered by surgery From a GI standpoint no need for intervention at this time will continue supportive care patient is aware that she needs to follow up with [facility] following her hospitalization to start biologic treatment Thank you for allowing me to share in the care of this very nice patient. This report may have been done utilizing a voice recognition system. Attempts have been made to correct errors. However, there may be uncorrected grammatical, spelling, and recognition errors present. GI Consult Note Consult date/time: 12/23/23 12:02 Reason for consult: Small bowel Crohns and SBO HPI: Sol Boateng is a 58 year old female anxiety, arthritis, depression, HLD, insomnia, cerebral aneurysm, cholecystectomy, tubal ligation and Crohn's disease. She presented to the ER at [facility] in [place] yesterday and was a direct admitted to [facility] today. GI consult for Crohn's disease and possible small-bowel obstruction. Patient was accompanied by her daughter Jeanette yates
[2023-12-23 14:00] VITALS: BP 112/66; PULSE 56; RESP 18; TEMP 36.1; O2SAT 100
[2023-12-23 21:38] VITALS: BP 110/58; PULSE 52; RESP 20; TEMP 36.2; O2SAT 99
[2023-12-23] MEDS: PANTOPRAZOLE SODIUM IV 40 MG VIAL IV PUSH (21:38)
[2023-12-23] MEDS: LORazepam INJ (*CRX) 2 MG/ML VIAL 0.5 MG IV PUSH (21:42)
[2023-12-24 06:00] VITALS: BP 108/57; PULSE 55; RESP 18; TEMP 35.8; O2SAT 97
[2023-12-24 06:04] LABS: Hematocrit 40.9 % (37.0-47.0); Hemoglobin 13.2 g/dL (12.0-15.0); Mean Corpuscular HGB Conc 32.3 g/dl (32-36); Mean Platelet Volume 9.8 fl (7.4-10.4); Platelet Count Result 270 k/mm3 (150-375); Red Blood Count 4.26 M/mm3 (4.2-5.4); Red Cell Distribution Width 13.3 % (11.5-14.5); White Blood Count 10.1 K/mm3 (4.5-10.0)
[2023-12-24 06:21] LABS: Anion Gap 5 mmol/L (4-12); Blood Urea Nitrogen 12 mg/dL (7-17); Carbon Dioxide 25 mmol/L (22-30); Chloride 109 mmol/L (98-107); Estimated CRCL calculation 90 ml/min; Estimated Glomerular Filt Rate > 60; Glucose 91 mg/dL (65-110); Potassium 3.5 mmol/L (3.4-5.0); Sodium 139 mmol/L (137-145)
[2023-12-24] MEDS: DEXTROSE 5%/0.45% SOD CHL 1,000 ML 75 ML IV CONT ×2 (06:39→20:27)
--- NOTE | 2023-12-24 06:58 | PM.IMPN ---
Progress Note: A&P Assessment and Plan (1) SBO (small bowel obstruction): Code(s): K56.609 - Unspecified intestinal obstruction, unspecified as to partial versus complete obstruction Status: Acute Assessment and Plan: Patient diagnosed with Crohns in August, which is being followed by MARINA Miranda. She was started on Imuran, but this had to be held for patients shoulder surgery. Patient states that [facility] Miranda plans on starting her on a injection and is currently undergoing the workup. CT abdomen/pelvis from outside facility reports a partial SBO with wall thickening of the loops of the small bowel at the transition point. - No NG placed at this time as patients nausea is well controlled and she has not been vomiting. If she develops vomiting an NG will be placed. - Monitor I&Os, vital signs, neuro status and patient is a fall risk - Monitor serum electrolytes and CBC - Tolerating clear liquid diet, advance as tolerated - P.r.n. Anti emetics, avoid reglan - Obstructive series ordered: 12/22: Dilated small bowel, consistent with adynamic ileus versus small bowel obstruction. 12/23: Mucosal fold thickening couple loops of ileum in the right lower quadrant with suggestion of at least mild stricture at the terminal ileum which be consistent with reported history of Crohn's disease. Normal 30 minute transit time to the colon with no dilated bowel to suggest obstruction. - General surgery consulted, no surgical intervention at this time - GI consulted, continue supportive treatment (2) Crohn's disease: Qualifiers: Digestive disease complication type: other complication Gastrointestinal tract location: small intestine Qualified Code(s): K50.018 - Crohn's disease of small intestine with other complication Code(s): K50.90 - Crohn's disease, unspecified, without complications Status: Acute Assessment and Plan: Patient diagnosed with Crohns in August, which is being followed by MAR[facility] Miranda. She was started on Imuran, but this had to be held for patients shoulder surgery. Patient states that [facility] Miranda plans on starting her on a injection and is currently undergoing the workup. - GI recommending follow up to restart patient on imuran Time Spent With Patient Time with patient: 25 - 35 minutes Subjective Date/time seen: 12/24/23 06:58 Interval history: 58 year old female with past medical history of Crohn disease, uterine prolapse, GERD, hyperlipidemia, and anxiety presents to the hospital for abdominal pain and constipation. Patient is pleasant sitting up in chair with family at bedside. She states she has had two small bowel movements and the abdominal pain is improving. She has been started on a clear liquid diet and is tolerating it well. She denies nausea/vomiting and worsening abdominal pain. Review of Systems Review of Systems: All systems reviewed & are unremarkable except as noted in HPI and below Exam Narrative: AF HR 59 RR 16 SpO2 98 BP 127/59 General: female in no acute respiratory distress who is nontoxic appearing, lying semi recumbent in bed. HEENT: Normocephalic. Atraumatic. Pupils equal round reactive to light. Extraocular movement intact. Sclera clear and anicteric. No facial asymmetry. Chest: Lungs are clear to auscultation bilaterally. No wheezes or crackles. CV: Heart was regular rate and rhythm. S1-S2. No murmurs, gallops, or rubs. Abd: Abdomen was soft. Nontender palpation. Nondistended. Positive bowel sounds. No organomegaly or masses. Ext: No clubbing, cyanosis, or edema. 2+ DP pulses bilaterally. Neuro: Patient is alert and oriented x4. Cranial nerves 2-12 are intact. Speech is clear. Psych: Normal mood and affect. Patient is pleasant and cooperative. Skin: Warm and dry. No rashes noted. Objective Data Vital Signs Vital Signs: Vital Signs - 24 hr 12/23/23 07:00 12/23/23 14:00 12/23/23 08:00 Temperature 97.9 F 96.9 F L Pulse Rate 57 L 56 L Respiratory Rate
[2023-12-24] MEDS: ENOXAPARIN 40 MG/0.4 ML SYRINGE SUB-Q (08:05)
--- NOTE | 2023-12-24 10:30 | PM.PNGS ---
Progress Note: A&P Assessment and Plan (1) SBO (small bowel obstruction): Code(s): K56.609 - Unspecified intestinal obstruction, unspecified as to partial versus complete obstruction Status: Acute Assessment and Plan: Clinically improving. Bowel function returning. Will get water soluble SBFT this morning. Will start advancing her diet if contrast moves through with no evidence of an obstruction. (2) Crohn's disease: Qualifiers: Gastrointestinal tract location: small intestine Digestive disease complication type: other complication Qualified Code(s): K50.018 - Crohn's disease of small intestine with other complication Code(s): K50.90 - Crohn's disease, unspecified, without complications Status: Acute Assessment and Plan: GI recommending f/u with GI outpatient to start Imuran Plan I have discussed the patient's case and plan of care with Dr. Pennington. Subjective Subjective Date/Time Seen: 12/24/23 10:30 Interval history: Feeling better today. Still complaining of abdominal pain mostly in the LUQ. Cramping pain that comes and goes. Bloating improved. Still has some nausea last night but better this morning. Little flatus and one BM this morning. Exam Const: General: comfortable and no acute distress GI: Inspection: non-distended GI Palp: Yes Soft to palpation, Yes Tenderness to palpation present (GI) (LUQ), No Guarding due to palpation present (GI) and No Rebound tenderness present Auscultation: Hypoactive bowel sounds present Objective Data Vital Signs Vital Signs: Vital Signs - 24 hr 12/23/23 14:00 12/23/23 21:38 12/24/23 06:00 Temperature 96.9 F L 97.1 F L 96.4 F L Pulse Rate 56 L 52 L 55 L Respiratory Rate 18 20 18 Blood Pressure 112/66 110/58 L 108/57 L Pulse Oximetry 100 99 97 Intake/Output Intake/Output: Intake & Output 12/21/23 12/22/23 12/23/23 12/24/23 23:59 23:59 23:59 23:59 Intake Total 1000 1000 Output Total 600 Balance 400 1000 Meds/Results Medications: Active Medications Generic Name Dose Route Start Last Admin Trade Name Freq PRN Reason Stop Dose Admin Enoxaparin Sodium 40 mg 12/23/23 09:00 12/24/23 08:05 Enoxaparin 40 Mg/0.4 Ml Syringe SUB-Q 40 mg DAILY CARMEN Administration Dextrose/Sodium Chloride 1,000 mls @ 75 mls/hr 12/23/23 03:00 12/24/23 06:39 Dextrose 5% Sodium Chloride 0.45% IV CONT 75 mls/hr .[id number] CARMEN Administration Morphine Sulfate 2 mg 12/23/23 02:56 12/23/23 20:33 Morphine Sulfate (*Crx) 2 Mg/Ml Inj IV PUSH 2 mg Q4H PRN Administration Pain Rated 7-10 Ondansetron HCl 4 mg 12/23/23 02:56 12/23/23 20:33 Ondansetron Inj 4 Mg/2 Ml Vial IV PUSH 4 mg Q6H PRN Administration Nausea And Vomiting Radiology Results: ITS Impressions Abdomen X-Ray 12/23/23 11:25 IMPRESSION: 1. Dilated small bowel, consistent with adynamic ileus versus small bowel obstruction. Labs Labs: Laboratory Results - last 24 hr 12/24/23 05:13 WBC 10.1 H RBC 4.26 Hgb 13.2 Hct 40.9 MCV 96.0 MCH 31.0 MCHC 32.3 RDW 13.3 Plt Count 270 MPV 9.8 Sodium 139 Potassium 3.5 Chloride 109 H Carbon Dioxide 25 Anion Gap 5 BUN 12 Creatinine 0.70 Estim Creat Clear Calc 90 Estimated GFR > 60 Glucose 91 Calcium 9.0 Magnesium 2.0
[2023-12-24 14:00] VITALS: BP 127/59; PULSE 59; RESP 16; TEMP 36.6; O2SAT 98
[2023-12-24] MEDS: MORPHINE SULFATE (*CRX) 2 MG/ML INJ IV PUSH ×2 (16:25→20:28)
--- NOTE | 2023-12-24 17:30 | WPDGIPROGNO ---
Progress Note: A&P Assessment and Plan (1) Crohn's disease: Qualifiers: Gastrointestinal tract location: small intestine Digestive disease complication type: other complication Qualified Code(s): K50.018 - Crohn's disease of small intestine with other complication Code(s): K50.90 - Crohn's disease, unspecified, without complications Status: Acute Assessment and Plan: SBFT showed mild stricture at ileum but contrast passing, now symptomatically much better no more pain or nausea and she is having BM's ok to advance diet as tolerated and hopefully home tomorrow she is planning to follow-up with her GI doctor and start biologics soon (2) SBO (small bowel obstruction): Code(s): K56.609 - Unspecified intestinal obstruction, unspecified as to partial versus complete obstruction Status: Acute Assessment and Plan: clinically better duet to Crohn's (3) Nausea and vomiting: Qualifiers: Vomiting type: projectile vomiting Qualified Code(s): R11.12 - Projectile vomiting Code(s): R11.2 - Nausea with vomiting, unspecified Status: Acute Assessment and Plan: resolved tolerating liquid diet (4) Generalized abdominal pain: Code(s): R10.84 - Generalized abdominal pain Status: Acute Subjective Date/time seen: 12/24/23 17:30 Interval history: she is having BM's after completed SBFT, no nausea and tolerating liquid diet, much better Review of Systems Review of Systems: All systems reviewed & are unremarkable except as noted in HPI and below Exam Const: General: comfortable and no acute distress HENMT: Face/Nose/Sinus: Normal nares present Eyes: General: appearance normal, both eyes and all related structures Neck: Neck: no JVD Resp: Auscultation: clear to auscultation bilaterally Cardio: Rate: regular rate Rhythm: regular rhythm GI: Inspection: non-distended GI Palp: Yes Soft to palpation and No Tenderness to palpation present (GI) Auscultation: normal bowel sounds Skin: General skin exam: normal color Neuro: General: gait normal Speech: normal speech Extrem: General: normal to inspection Psych: Mental Status: mental status grossly normal Objective Data Vital Signs Vital Signs: Vital Signs - 24 hr 12/23/23 21:38 12/24/23 06:00 12/24/23 14:00 Temperature 97.1 F L 96.4 F L 98 F Pulse Rate 52 L 55 L 59 L Respiratory Rate 20 18 16 Blood Pressure 110/58 L 108/57 L 127/59 L Pulse Oximetry 99 97 98 Intake/Output Intake/Output: Intake & Output 12/21/23 12/22/23 12/23/23 12/24/23 23:59 23:59 23:59 23:59 Intake Total 1000 1000 Output Total 600 Balance 400 1000 Meds/Results Medications: Active Medications Generic Name Dose Route Start Last Admin Trade Name Freq PRN Reason Stop Dose Admin Enoxaparin Sodium 40 mg 12/23/23 09:00 12/24/23 08:05 Enoxaparin 40 Mg/0.4 Ml Syringe SUB-Q 40 mg DAILY CARMEN Administration Dextrose/Sodium Chloride 1,000 mls @ 75 mls/hr 12/23/23 03:00 12/24/23 06:39 Dextrose 5% Sodium Chloride 0.45% IV CONT 75 mls/hr .[id number] CARMEN Administration Morphine Sulfate 2 mg 12/23/23 02:56 12/24/23 16:25 Morphine Sulfate (*Crx) 2 Mg/Ml Inj IV PUSH 2 mg Q4H PRN Administration Pain Rated 7-10 Ondansetron HCl 4 mg 12/23/23 02:56 12/23/23 20:33 Ondansetron Inj 4 Mg/2 Ml Vial IV PUSH 4 mg Q6H PRN Administration Nausea And Vomiting Radiology Results: ITS Impressions Abdomen X-Ray 12/23/23 11:25 IMPRESSION: 1. Dilated small bowel, consistent with adynamic ileus versus small bowel obstruction. Small Bowel X-Ray 12/24/23 13:50 IMPRESSION: 1. Mucosal fold thickening couple loops of ileum in the right lower quadrant with suggestion of at least mild stricture at the terminal ileum which be consistent with reported history of Crohn's disease. 2. Normal 30 minute transit time to the colon with no dilated bowel to suggest o
[2023-12-24] MEDS: ESCITALOPRAM OXALATE 10 MG TABLET 20 MG PO (20:26)
[2023-12-24 22:33] VITALS: BP 115/59; PULSE 51; RESP 20; TEMP 36.8; O2SAT 99
[2023-12-25 06:00] VITALS: BP 110/64; PULSE 48; RESP 20; TEMP 36.3; O2SAT 98
--- NOTE | 2023-12-25 07:45 | PM.DS ---
DS: Admitting Diagnosis Discharge Date 12/25/2023 0745 Admitting Diagnosis SBO DS: Discharge Diagnosis Discharge Diagnosis (1) SBO (small bowel obstruction): Code(s): K56.609 - Unspecified intestinal obstruction, unspecified as to partial versus complete obstruction Status: Acute Assessment and Plan: Patient diagnosed with Crohns in August, which is being followed by [facility] Miranda. She was started on Imuran, but this had to be held for patients shoulder surgery. Patient states that [facility] Miranda plans on starting her on a injection and is currently undergoing the workup. CT abdomen/pelvis from outside facility reports a partial SBO with wall thickening of the loops of the small bowel at the transition point. - No NG placed at this time as patients nausea is well controlled and she has not been vomiting. If she develops vomiting an NG will be placed. - Monitor I&Os, vital signs, neuro status and patient is a fall risk - Monitor serum electrolytes and CBC - Tolerating clear liquid diet, advance as tolerated - P.r.n. Anti emetics, avoid reglan - Obstructive series ordered: 12/22: Dilated small bowel, consistent with adynamic ileus versus small bowel obstruction. 12/23: Mucosal fold thickening couple loops of ileum in the right lower quadrant with suggestion of at least mild stricture at the terminal ileum which be consistent with reported history of Crohn's disease. Normal 30 minute transit time to the colon with no dilated bowel to suggest obstruction. - General surgery consulted, no surgical intervention at this time - GI consulted, continue supportive treatment (2) Crohn's disease: Qualifiers: Digestive disease complication type: other complication Gastrointestinal tract location: small intestine Qualified Code(s): K50.018 - Crohn's disease of small intestine with other complication Code(s): K50.90 - Crohn's disease, unspecified, without complications Status: Acute Assessment and Plan: Patient diagnosed with Crohns in August, which is being followed by [facility] Miranda. She was started on Imuran, but this had to be held for patients shoulder surgery. Patient states that [facility] Miranda plans on starting her on a injection and is currently undergoing the workup. - GI recommending follow up to restart patient on imuran DS: Summary Hospital Course Hospital Course: Patient is a 58-year-old female with past medical history of tobacco abuse, Crohn's disease who presented the ED with complaints abdominal pain and constipation. CT of the abdomen pelvis showed small obstruction. General surgery was consulted patient was started on IV fluids. Small-bowel follow-through was completed showed bowel obstruction. Patient also been recently diagnosed with Crohn's disease she had been following with a GI specialist and was started on Imuran. Imuran had to be stopped related to a scheduled surgery for her shoulder. Currently patient has been able to tolerate a diet. GI was also consulted and recommends restarting the medications with her GI physician. Patient denies any current chest pain, shortness a breath, nausea vomiting, diarrhea constipation. At this point patient is stable for discharge per labs and vital signs. Patient has been instructed to follow-up with her GI physician for further management. Take all her GI REFRIGERATING TECHNICIAN and did make her an appointment for SaturdayDecember 29 at 1:30 p.m.. Updated the patient who was okay with that appointment. Patient states she feels better and she is ready to discharge. Status at Discharge Functional status at discharge: independent ambulation Overall status at discharge: patient is progressing back to baseline Time Spent with Patient Time attestation: Total time spent providing and/or coordinating discharge services: 42 minutes Time spent: Greater than 30 minutes Specific discharge activities: Diagnostic testing, chart review, developing a treatment plan, education, care coordination do
[2023-12-25] MEDS: ENOXAPARIN 40 MG/0.4 ML SYRINGE SUB-Q (08:05)
== END 2023-12-25 12:43 | disposition home or self-care (01) | DRG 387 ==
PROVIDERS: Nurse Practitioner Family; Admitting Provider Internal Medicine; PCP Family Medicine; Visit Provider Nurse Practitioner
DX: K50.012 Crohn's disease of small intestine with intestinal obstruction (principal); F17.210 Nicotine dependence, cigarettes, uncomplicated; I67.1 Cerebral aneurysm, nonruptured; K21.9 Gastro-esophageal reflux disease without esophagitis; F41.9 Anxiety disorder, unspecified; M19.90 Unspecified osteoarthritis, unspecified site; E78.5 Hyperlipidemia, unspecified; Z90.49 Acquired absence of other specified parts of digestive tract
CPT/HCPCS: 36415; 74019; 74250; 80048; 83735; 85025; 85027; 85610; 85730; A9270; C9113; J1650; J2060; J2270; J2405

== ENCOUNTER 2023-12-29 14:37 | Observation (INO) | payer BC, SELFPAY ==
[2023-12-29] VITALS (13 sets, daily range): BP systolic 100–127; BP diastolic 56–79; PULSE 42–56; RESP 12–22; TEMP 36.3–36.4; O2SAT 99–100
--- NOTE | ~2023-12-29 | CT_ITS ---
EXAMINATION: CT abdomen pelvis w con DATE: 12/29/2023 17:08 INDICATION: Generalized abdominal pain. Vomiting. TECHNIQUE: Computed tomography (CT) of the abdomen and pelvis was performed with 100 mL Omnipaque 350 intravenous contrast. Automated exposure control and iterative reconstruction technique were employe d. The dose-length product was 609.14 mGy-cm. COMPARISON: CT abdomen pelvis 07/12/2015, small bowel series 12/24/2023 FINDINGS: The visualized portions of the lung bases demonstrate mild atelectasis. No pleural effusion . The heart size is normal. No pericardial effusion. The liver and spleen are normal. There are marcos es of cholecystectomy. The pancreas, adrenal glands are normal. There is cortical thinning of the kid neys. There is wall thickening in the terminal ileum. There is a dilated loop of distal ileum. The ap pendix is normal. There are no pathologically enlarged lymph nodes. There is no free intraperitoneal fluid. There are changes of anterior and posterior fusion procedures from L4 to S1. There is mild tho racic and lumbar spondylosis. IMPRESSION: 1. Wall thickening in the terminal ileum with dilated loop of distal ileum, consistent with Crohn dis ease and low-grade partial small bowel obstruction versus adynamic ileus. Reviewed, dictated and finalized at location E. IMPRESSION: 1. Wall thickening in the terminal ileum with dilated loop of distal ileum, con sistent with Crohn disease and low-grade partial small bowel obstruction versus adynamic ileus.
--- NOTE | 2023-12-29 15:46 | ED.ABDPAIN ---
HPI - Abdominal Pain General Chief Complaint: Abdominal Pain Stated Complaint: abd pain, r/o sbo Time Seen by Provider: 12/29/23 15:40 Source: patient Mode of arrival: ambulatory Limitations: no limitations History of Present Illness HPI narrative: This is a 58-year-old female who presents to the ED for chief complaint of abdominal pain that is generalized in nature. Reports it has been ongoing for the past week or so. She was just admitted to the hospital for SBO last week. She states that she was discharged on Saturday and has been in pain ever since discharge. Reports at least 1 episode of nausea and vomiting per day since discharge. States it is very difficult to keep down liquids and she is unable to keep down solids. patient reports intermittent loose stools. Denies GI bleeding symptoms. Denies fevers, chills, chest pain, shortness of breath, cough, urinary symptoms Related Data Home Medications Medication Instructions Recorded Confirmed cholecalciferol (vitamin D3) 75 75 mcg PO WEEKLY 07/13/21 12/29/23 mcg (3,000 unit) tablet escitalopram oxalate 20 mg tablet 20 mg PO HS 11/20/23 12/29/23 ibuprofen 200 mg tablet 400 mg PO Q6H PRN Pain 11/20/23 12/29/23 estradiol 2 mg tablet 2 mg PO HS 12/23/23 12/29/23 omeprazole 20 mg capsule,delayed 20 mg PO HS 12/23/23 12/29/23 release ondansetron 4 mg disintegrating 4 mg PO Q6-8H PRN Nausea 12/29/23 12/29/23 tablet Allergies Allergy/AdvReac Type Severity Reaction Status Date / Time Penicillins Allergy Intermediate HIVES Verified 11/28/23 09:08 Review of Systems Review of Systems: All systems as dictated in HPI [facility] Past Medical History Medical History (Updated 12/30/23 @ 00:04 by Jamie Bustillo PA-C) Anxiety disorder Arthritis Arthritis of both knees Cerebral aneurysm severe headache in 04/2020 - aneurysm found on CT, currently being monitored - no intervention required yet Crohn's disease History of depression Hyperlipidemia Insomnia Surgical History Surgical History History of arthroscopic knee surgery (~2018) Rt History of back surgery (~2005) History of carpal tunnel surgery (~2002) Rt History of carpal tunnel surgery of left wrist (~2003) History of elbow surgery (~2003) Rt - Tendon Repair History of hysterectomy 2021 - laparoscopic supracervical hysterectomy and bilateral salpingo-oophorectomy History of rotator cuff surgery (~05/2020) & Biceps Repair - Lt History of tonsillectomy (~1972) History of tubal ligation (~03/2000) Hx laparoscopic cholecystectomy Social History Social History (Updated 12/29/23 @ 22:11 by Guadalupe Abel, DO) Smoking packs per day: 1 Smoking cigarettes per day: 20.0 Years smoked: 20 Smoking pack-years: 20.00 Smoking status: Current every day smoker Tobacco type: cigarettes Second hand tobacco smoke exposure: No Smoking end date: 07/08/97 Alcohol intake: former Drinks per week: 4 Substance use: current Substance use type: marijuana Other substance usage details: daily Last use: 12/29/23 Do You Feel Safe in your Home?: Yes Lack of Transportation: No Lack of Food: Never True Current Housing: I Have Housing Concerned About Future Housing: No Difficulty Paying Gas/Electric Bills: No Difficulty Paying for Meds: No Currently Unemployed: No Education: High School Diploma/GED Difficulty w/ Childcare or Family Care: No Living arrangements: with family Gender identity (if verbalized by the patient): Female Sexual Orientation (if Verbalized by the Patient): Straight or Heterosexual Spiritual care concerns: No Exam Narrative: GENERAL: Well-appearing, well-nourished, and in no acute distress. HEAD: Normocephalic, atraumatic. EYES: PERRLA and EOMI. ENT: Nares clear, no rhinorrhea or epistaxis. Mucous membranes moist. Oropharynx without tonsillar hypertrophy exudate or other lesions.
[2023-12-29 16:06] LABS: Basophils Percent Auto 0.4 % (0.2-1.2); Eosinophils Absolute Auto 0.2 K/mm3 (0-0.3); Eosinophils Percent Auto 1.5 % (0-4.4); Hematocrit 39.8 % (37.0-47.0); Hemoglobin 12.9 g/dL (12.0-15.0); Immature Granulocyte Absolute 0.03 K/mm3 (0.00-0.031); Immature Granulocyte Percent A 0.3 % (0-0.5); Lymphocytes Absolute Auto 4.35 K/mm3 (0.9-3.2); Lymphocytes Percent Auto 40.1 % (18.3-44.2); Mean Corpuscular HGB Conc 32.4 g/dl (32-36); Mean Corpuscular Hemoglobin 30.8 pg (26-34); Mean Platelet Volume 9.6 fl (7.4-10.4); Monocytes Absolute Auto 0.6 K/mm3 (0.1-0.6); Monocytes Percent Auto 5.6 % (2.6-8.5); Neutrophils Absolute Auto 5.7 K/mm3 (1.3-6.7); Neutrophils Percent Auto 52.1 % (45.5-73.1); Platelet Count Result 273 k/mm3 (150-375); Red Blood Count 4.19 M/mm3 (4.2-5.4); Red Cell Distribution Width 12.8 % (11.5-14.5); White Blood Count 10.8 K/mm3 (4.5-10.0)
[2023-12-29 16:14] LABS: Lactic Acid Reflex 0.8 mmol/L (0.7-2.0)
[2023-12-29 16:17] LABS: Alanine Aminotransferase 87 U/L (6-35); Albumin Level 4.1 g/dL (3.5-5.1); Alkaline Phosphatase 79 U/L (38-126); Anion Gap 5 mmol/L (4-12); Aspartate Amino Transferase 122 U/L (14-36); Bilirubin,Total 0.7 mg/dL (0.2-1.3); Blood Urea Nitrogen 16 mg/dL (7-17); Calcium 10.1 mg/dL (8.4-10.2); Carbon Dioxide 27 mmol/L (22-30); Chloride 106 mmol/L (98-107); Estimated CRCL calculation 88 ml/min; Estimated Glomerular Filt Rate > 60; Glucose 85 mg/dL (65-110); Lipase 23 U/L (23-300); Potassium 3.4 mmol/L (3.4-5.0); Sodium 138 mmol/L (137-145)
[2023-12-29 16:22] LABS: Appearance Urine Cloudy (Clear); Bacteria Urine 1+ /hpf; Bilirubin Urine 1+ (Negative); Blood Urine Trace (Negative); Color Urine Dark Yellow (Yellow); Glucose Urine UA Negative (Negative); Ketones Urine Trace mg/dL (Negative); Leukocyte Esterase Ur Trace LEU/UL (Negative); Nitrate Urine Negative (Negative); Non Pathogenic Casts 0-2; Protein Urine Negative (Negative); Squamous Epithelial Cell Urine Moderate /hpf (Few); Uric Acid Crystals Urine Present /hpf; WBC Urine 0-5 /hpf (0-3); pH Urine 5.5 (5.0-9.0)
[2023-12-29 16:23] LABS: Add Urine Microscopic? YES
[2023-12-29] MEDS: MORPHINE SULFATE (*CRX) 4 MG/ML INJ IV PUSH (16:24)
[2023-12-29] MEDS: ONDANSETRON INJ 4 MG/2 ML VIAL IV PUSH (16:24)
[2023-12-29] MEDS: SODIUM CHLORIDE 0.9% IV 1,000 ML 999 ML IV CONT ×2 (16:25→18:32)
--- NOTE | 2023-12-29 17:21 | ECG_ITS ---
Test Date: 2023-12-29 18:00:27 Measurements Intervals [place] Rate: 44 P: 58 MO: 190 QRS: 9 QRSD: 94 T: 13 QT: 468 QTc: 402 Interpretive Statements SINUS BRADYCARDIA OTHERWISE NORMAL EKG No previous ECG available for comparison Electronically Signed On 12-30-2023 07:22:18 CDT by Rosendo Sutton M.D.
[2023-12-29] MEDS: methylPREDNISolone SOD SUCC 125 MG VIAL 60 MG IV PUSH (18:32)
--- NOTE | 2023-12-29 19:26 | PC.NURSE ---
Assumed care of pt from CAMERON Blackmon at this time. Pt resting comfortably in bed w call light within reach.
[2023-12-29] MEDS: METOCLOPRAMIDE HCL INJ 10 MG/2 ML VIAL IV PUSH (20:21)
[2023-12-29] MEDS: HYDROmorphone HCL INJ (*CRX) 1 MG/ML SYR 0.5 MG IV PUSH (21:07)
--- NOTE | 2023-12-29 21:36 | PM.IMHP ---
H&P: HPI History of Present Illness Date/Time: 12/29/23 21:36 Chief Complaint: Abdominal pain, vomiting Narrative: 58-year-old female with a past medical history of depression he, vitamin-D deficiency, GERD and Crohn's with history of bowel obstructions who presented to the ER via private vehicle due to abdominal pain and vomiting. Patient had just been hospitalized the through the for bowel obstruction. The patient reports that she began her symptoms of diarrhea back in April. In August she was diagnosed with Crohn's. Since that time she has been having intermittent recurrent episodes of generalized crampy almost colicky abdominal pain. Her symptoms worsened and she was admitted to the hospital to . She was treated with bowel rest pain medications fluids. She reported that she ate 1 solid meal prior to leaving. When she went home she was able to eat dinner that night but then by the next day she was having increasing pain. She went back on a clear liquid diet and was able to tolerate that initially but by this morning she was no longer able to tolerate clear liquids and was having recurrent vomiting. She reports that she had 1 mostly formed stool while she was hospitalized but has not had anything besides small amounts of mucus C brown mushy stool since then. She denies any fevers or chills or ill contacts. Patient is noted to be bradycardic but was bradycardic all the way throughout her last hospital stay. Her she denies any shortness of breath, cough congestion, changes in urinary urgency or dysuria. She has had decreased urine output with her decreased oral intake. The patient reports she tried ibuprofen for pain without relief in symptoms. She reports her pain is better if she lays down instead of trying to sit up or scroll into a position. Pain is a 7/10 in intensity at its worst and currently is down to a 4/10 in intensity about 2 hours after receiving IV pain medications. She was awaiting her prior authorization for [facility] and had an appointment scheduled with her primary care physician and her straightening machine operator [place] who works with Dr. English tomorrow. Review of Systems Review of Systems: 12 systems were reviewed with pertinent positives and negatives per HPI. Except as documented in the HPI, all other systems were reviewed and are negative. [facility] Past Medical History Medical History Anxiety disorder Arthritis Arthritis of both knees Cerebral aneurysm severe headache in 04/2020 - aneurysm found on CT, currently being monitored - no intervention required yet Crohn's disease History of depression Hyperlipidemia Insomnia Surgical History Surgical History History of arthroscopic knee surgery (~2018) Rt History of back surgery (~2005) History of carpal tunnel surgery (~2002) Rt History of carpal tunnel surgery of left wrist (~2003) History of elbow surgery (~2003) Rt - Tendon Repair History of hysterectomy 2021 - laparoscopic supracervical hysterectomy and bilateral salpingo-oophorectomy History of rotator cuff surgery (~05/2020) & Biceps Repair - Lt History of tonsillectomy (~1972) History of tubal ligation (~03/2000) Hx laparoscopic cholecystectomy Social History Social History (Updated 12/30/23 @ 05:25 by Guadalupe Abel DO) Social History: The patient lives with her , of 30 years, and their black Labrador retriever. They raised 2 daughters and 2 sons. 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 She used to drink an occasional glass a wine but has not done so since onset of her Crohn's symptoms. The she uses marijuana gummies daily. She has smoked up to a pack of cigarettes per day on and off for about 20 years. She just started smoking again 1.5 years ago. Code status: Full code Surrogate decision maker: Smoking packs per day: 1 Supriya
--- NOTE | 2023-12-29 21:47 | ADMGEN ---
This patient, Sol Boateng, was admitted to [facility] Surg Room 330-01. Patient/family oriented to hospital policies and general routines including ID bracelet, bed and alarms, visiting hours, pain management, procedures, bathroom and other care routines, personal items, smoking policy, room service/diet, and visiting hours. Information on how to activate the Rapid Response Team has been discussed. Patient/Family are encouraged to report perceived risks to care and to ask questions if they do not understand what they are told or what they should do.
[2023-12-29] MEDS: methylPREDNISolone SOD SUCC 125 MG VIAL 80 MG IV PUSH (22:01)
[2023-12-29] MEDS: SODIUM CHLORIDE 0.9% IV 1,000 ML 125 ML IV CONT (22:01)
[2023-12-30] VITALS (9 sets, daily range): BP systolic 115–123; BP diastolic 60–70; PULSE 38–52; RESP 16–18; TEMP 35.9–36.3; O2SAT 98–100; BMI 29.2
[2023-12-30] MEDS: ONDANSETRON INJ 4 MG/2 ML VIAL IV PUSH ×2 (00:40→05:51)
[2023-12-30] MEDS: HYDROmorphone HCL INJ (*CRX) 1 MG/ML SYR 0.5 MG IV PUSH ×4 (00:55→20:58)
[2023-12-30] MEDS: methylPREDNISolone SOD SUCC 125 MG VIAL 80 MG IV PUSH ×2 (05:46→12:56)
[2023-12-30] MEDS: SODIUM CHLORIDE 0.9% IV 1,000 ML 125 ML IV CONT ×3 (05:47→20:58)
--- NOTE | 2023-12-30 08:40 | P.CONGI_ITS ---
I, Russell Miller MD, have provided a substantive portion of the care of this patient and discussed the patient with my Nurse Practitioner. I have reviewed any new relevant radiographic and laboratory results including medications. I agree with her documentation as noted below.?I personally performed the medical decision making and much of the history and exam for this encounter. she was just recently discharged due to partial SBO from Crohn's, diagnosed earlier this year after noted stricture at [facility] (had colonoscopy and MRE), here again with recurrent abdominal pain, n/v. Pain has improved and better. Her GI doctor ordered humira which was just approved but she has not got the medication just yet. Plan is to advance diet if no more pain or nausea, reassess if she can tolerate, in the meantime iv steroids and she needs to start humira marcella once she leaves the hospital and follow-up with her GI doctor. Assessment and Plan Assessment and plan (1) Abnormal digestive system diagnostic imaging: Code(s): R93.3 - Abnormal findings on diagnostic imaging of other parts of digestive tract Status: Acute (2) Crohn's disease: Qualifiers: Gastrointestinal tract location: small intestine Digestive disease complication type: other complication Qualified Code(s): K50.018 - Crohn's disease of small intestine with other complication Code(s): K50.90 - Crohn's disease, unspecified, without complications Status: Acute (3) Generalized abdominal pain: Code(s): R10.84 - Generalized abdominal pain Status: Acute (4) Nausea and vomiting: Qualifiers: Vomiting type: projectile vomiting Qualified Code(s): R11.12 - Projectile vomiting Code(s): R11.2 - Nausea with vomiting, unspecified Status: Acute (5) Weight loss: Code(s): R63.4 - Abnormal weight loss Status: Acute (6) Chronic diarrhea: Code(s): K52.9 - Noninfective gastroenteritis and colitis, unspecified Status: Acute (7) Elevated liver transaminase level: Code(s): R74.01 - Elevation of levels of liver transaminase levels Status: Acute Plan 1) Abnormal imaging digestive/ small-bowel Crohn's disease / SBO /bloating/ nausea and vomiting /weight loss/ diarrhea: Per patient she had a colonoscopy performed in July, results unknown. given the patient's description it sounds as if she had an MR enterography in August and was diagnosed with small bowel Crohn's. She has been seeing MARINA Miranda for her GI care. After diagnosis she was started on Imuran 50 mg daily but was only taking this for approximately a month before it was discontinued for shoulder surgery in October. Patient was doing well after discharge on Dec 24 but states that as soon as she ate soild foods her symptoms quickly returned. She was having mostly left-sided pain but states that it can radiate throughout her abdomen. when pain occurs in her upper abdomen it typically is followed by nausea and vomiting and when pain is in her lower abdomen is typically followed by diarrhea. Bowel movement this morning she states contain small formed pieces of stool. Denies any hematochezia or hematemesis. Abdominal pain, nausea, and vomiting have improved since admission but have not resolved. I personally spoke with MAIRNA Miranda who states that the patient's Humira was improved, per patient she has a family member currently working to obtain her Humira prescription. Patient received 1 IV dose of methylprednisolone on admission. * Ok for clear liquids if tolerated * Start prednisone taper to be continued as outpatient * Patient to start Humira after d
--- NOTE | 2023-12-30 08:40 | WPDGICN ---
Assessment and Plan Assessment and plan (1) Abnormal digestive system diagnostic imaging: Code(s): R93.3 - Abnormal findings on diagnostic imaging of other parts of digestive tract Status: Acute (2) Crohn's disease: Qualifiers: Gastrointestinal tract location: small intestine Digestive disease complication type: other complication Qualified Code(s): K50.018 - Crohn's disease of small intestine with other complication Code(s): K50.90 - Crohn's disease, unspecified, without complications Status: Acute (3) Generalized abdominal pain: Code(s): R10.84 - Generalized abdominal pain Status: Acute (4) Nausea and vomiting: Qualifiers: Vomiting type: projectile vomiting Qualified Code(s): R11.12 - Projectile vomiting Code(s): R11.2 - Nausea with vomiting, unspecified Status: Acute (5) Weight loss: Code(s): R63.4 - Abnormal weight loss Status: Acute (6) Chronic diarrhea: Code(s): K52.9 - Noninfective gastroenteritis and colitis, unspecified Status: Acute (7) Elevated liver transaminase level: Code(s): R74.01 - Elevation of levels of liver transaminase levels Status: Acute Plan 1) Abnormal imaging digestive/ small-bowel Crohn's disease / SBO /bloating/ nausea and vomiting /weight loss/ diarrhea: Per patient she had a colonoscopy performed in July, results unknown. given the patient's description it sounds as if she had an MR enterography in August and was diagnosed with small bowel Crohn's. She has been seeing MARINA Miranda for her GI care. After diagnosis she was started on Imuran 50 mg daily but was only taking this for approximately a month before it was discontinued for shoulder surgery in October. Patient was doing well after discharge on Dec 24 but states that as soon as she ate soild foods her symptoms quickly returned. She was having mostly left-sided pain but states that it can radiate throughout her abdomen. when pain occurs in her upper abdomen it typically is followed by nausea and vomiting and when pain is in her lower abdomen is typically followed by diarrhea. Bowel movement this morning she states contain small formed pieces of stool. Denies any hematochezia or hematemesis. Abdominal pain, nausea, and vomiting have improved since admission but have not resolved. I personally spoke with MARINA Miranda who states that the patient's Humira was improved, per patient she has a family member currently working to obtain her Humira prescription. Patient received 1 IV dose of methylprednisolone on admission. Ok for clear liquids if tolerated Start prednisone taper to be continued as outpatient Patient to start Humira after discharge From a GI standpoint no need for intervention at this time will continue supportive care 2) Liver transaminase elevation: No history of prior LFT elevation or history of liver disease. Labs yesterday showed normal total bilirubin and alkaline phosphatase and AST at 122 and ALT 87. Liver normal on CT. Lipase normal. Likely acute, can be followed up outpatient Thank you very much for allowing me to share in the care this very nice patient This report may have been done utilizing a voice recognition system. Attempts have been made to correct errors. However, there may be uncorrected grammatical, spelling, and recognition errors present. GI Consult Note Consult date/time: 12/30/23 08:40 Reason for consult: Crohns disease HPI: Sol Boateng is a 58 year old female anxiety, arthritis, depression, HLD, insomnia, cerebral aneurysm, cholecystectomy, tubal ligation and Crohn's disease. patient presented back to the emergency room yesterday with complaints of worsening abdominal pain and vomiting since her last admission December 22- for SBO secondary to Crohn's disease. GI consulted for Crohn's disease. CT scan on admission showed wall thickening of the terminal ile
[2023-12-30] MEDS: ENOXAPARIN 40 MG/0.4 ML SYRINGE SUB-Q (08:45)
--- NOTE | 2023-12-30 10:11 | PM.IMPN ---
Progress Note: A&P Assessment and Plan (1) Crohn's disease: Qualifiers: Digestive disease complication type: other complication Gastrointestinal tract location: small intestine Qualified Code(s): K50.018 - Crohn's disease of small intestine with other complication Code(s): K50.90 - Crohn's disease, unspecified, without complications Status: Acute Assessment and Plan: - GI recommendations reviewed: Ok for clear liquids if tolerated Start prednisone taper to be continued as outpatient Patient to start Humira after discharge From a GI standpoint no need for intervention at this time will continue supportive care (2) Partial small bowel obstruction: Code(s): K56.600 - Partial intestinal obstruction, unspecified as to cause Status: Acute Assessment and Plan: - seen per GI -recommendations reviewed Ok for clear liquids if tolerated Start prednisone taper to be continued as outpatient Patient to start Humira after discharge From a GI standpoint no need for intervention at this time will continue supportive care Plan Patient has Crohn's disease and was just discharged after small-bowel obstruction. She has had recurrent symptoms and imaging demonstrates partial small-bowel obstruction. Will place patient on scheduled IV Solu-Medrol 80 mg Q 8. Will continue patient on IV fluids, p.r.n. antiemetics and pain medications. Patient was npo but ok to advance Will substitute the patient's oral PPI therapy for Protonix 40 mg IV daily. Patient has been admitted as observation status. Time Spent With Patient Time with patient: 25 - 35 minutes Subjective Date/time seen: 12/30/23 10:11 Interval history: 58-year-old f with PMH/o depression he, vitamin-D deficiency, GERD and Crohn's with history of bowel obstructions who presented to the ER via private vehicle due to abdominal pain and vomiting. Patient had just been hospitalized the through the for bowel obstruction. She reports that diarrhea started back in April. In August she was diagnosed with Crohn's. narrative retrieved from h/p: Since that time she has been having intermittent recurrent episodes of generalized crampy almost colicky abdominal pain. She was admitted to the hospital to . She was treated with bowel rest pain medications fluids. She reported that she ate 1 solid meal prior to leaving. When she went home - she experienced increased pain after she ate. She went back on a clear liquid diet and was able to tolerate that initially but by this morning she was no longer able to tolerate clear liquids and was having recurrent vomiting. She reports that she had 1 mostly formed stool while she was hospitalized but has not had anything besides small amounts of mucus C brown mushy stool since then. She denies any fevers or chills or ill contacts. Patient is noted to be bradycardic but was bradycardic all the way throughout her last hospital stay. Her she denies any shortness of breath, cough congestion, changes in urinary urgency or dysuria. She was awaiting her prior authorization for [place] and had an appointment scheduled with her primary care physician and her supervisor byproducts [place] who works with Dr. English tomorrow. 12/29- pt is seen and exmained today. she was seen per GI this morning and there is no intervention is needed from GI stand point. Medrol dose pack is ordered per gi and pt is to go home with taper. OK to advance diet to clear liquid and more if tolerated. if stable and tolerating food- will go home tomorrow Review of Systems Review of Systems: 12 systems were reviewed with pertinent positives and negatives per HPI. Except as documented in the HPI, all other systems were reviewed and are negative. Exam Narrative: Weight 87.4 kg BMI 29.3 Const: Other: No acute distress, well-developed well-nourished, appears stated age HENMT: Other: Mucous memb
[2023-12-30] MEDS: PANTOPRAZOLE SOD SESQUIHYDRATE 20 MG TAB PO (12:56)
[2023-12-30] MEDS: methylPREDNISolone SOD SUCC 125 MG VIAL 40 MG IV PUSH (20:59)
[2023-12-31] VITALS: PULSE 58
[2023-12-31 04:00] VITALS: PULSE 39
[2023-12-31] MEDS: SODIUM CHLORIDE 0.9% IV 1,000 ML 125 ML IV CONT (04:51)
[2023-12-31] MEDS: methylPREDNISolone SOD SUCC 125 MG VIAL 40 MG IV PUSH ×2 (05:10→15:30)
[2023-12-31 05:15] VITALS: BP 117/73; PULSE 47; RESP 20; TEMP 35.8; O2SAT 100
[2023-12-31 08:02] VITALS: PULSE 42
[2023-12-31] MEDS: ENOXAPARIN 40 MG/0.4 ML SYRINGE SUB-Q (08:10)
[2023-12-31] MEDS: PANTOPRAZOLE SOD SESQUIHYDRATE 20 MG TAB PO (08:10)
--- NOTE | 2023-12-31 08:17 | PM.IMPN ---
Progress Note: A&P Assessment and Plan (1) Crohn's disease: Qualifiers: Digestive disease complication type: other complication Gastrointestinal tract location: small intestine Qualified Code(s): K50.018 - Crohn's disease of small intestine with other complication Code(s): K50.90 - Crohn's disease, unspecified, without complications Status: Acute Assessment and Plan: - GI recommendations reviewed: Ok for clear liquids if tolerated Start prednisone taper to be continued as outpatient Patient to start Humira after discharge From a GI standpoint no need for intervention at this time will continue supportive care -will advance diet from full liquid- as tolerated it well so far (2) Partial small bowel obstruction: Code(s): K56.600 - Partial intestinal obstruction, unspecified as to cause Status: Acute Assessment and Plan: - seen per GI -recommendations reviewed Ok for clear liquids if tolerated Start prednisone taper to be continued as outpatient Patient to start Humira after discharge From a GI standpoint no need for intervention at this time will continue supportive care Time Spent With Patient Time with patient: 25 - 35 minutes Subjective Date/time seen: 12/31/23 08:17 Interval history: 58-year-old f with PMH/o depression he, vitamin-D deficiency, GERD and Crohn's with history of bowel obstructions who presented to the ER via private vehicle due to abdominal pain and vomiting. Patient had just been hospitalized the through the for bowel obstruction. She reports that diarrhea started back in April. In August she was diagnosed with Crohn's. narrative retrieved from h/p: Since that time she has been having intermittent recurrent episodes of generalized crampy almost colicky abdominal pain. She was admitted to the hospital to . She was treated with bowel rest pain medications fluids. She reported that she ate 1 solid meal prior to leaving. When she went home - she experienced increased pain after she ate. She went back on a clear liquid diet and was able to tolerate that initially but by this morning she was no longer able to tolerate clear liquids and was having recurrent vomiting. She reports that she had 1 mostly formed stool while she was hospitalized but has not had anything besides small amounts of mucus C brown mushy stool since then. She denies any fevers or chills or ill contacts. Patient is noted to be bradycardic but was bradycardic all the way throughout her last hospital stay. Her she denies any shortness of breath, cough congestion, changes in urinary urgency or dysuria. She was awaiting her prior authorization for Humira and had an appointment scheduled with her primary care physician and her buyer planner [place] who works with Dr. English tomorrow. 12/29- pt is seen and examined today. she was seen per GI this morning and there is no intervention is needed from GI stand point. Medrol dose pack is ordered per gi and pt is to go home with taper. OK to advance diet to clear liquid and more if tolerated. if stable and tolerating food- will go home tomorrow. 12/30- solumedrol dose was decreased per GI yesterday- methylprednisone-40 mg IV q8h. will advance diet today per GI recommendations- as pt doing well on full liquid Review of Systems Review of Systems: 12 systems were reviewed with pertinent positives and negatives per HPI. Except as documented in the HPI, all other systems were reviewed and are negative. Exam Narrative: Weight 87.4 kg BMI 29.3 Const: Other: No acute distress, well-developed well-nourished, appears stated age HENMT: Other: Mucous membranes are tacky, no oral pharyngeal erythema, no scleral icterus Eyes: Other: No scleral icterus, no conjunctival pallor Neck: Other: No JVD, no lymphadenopathy Resp: Other: Clear to auscultation bilaterally, no increased work
[2023-12-31 12:00] VITALS: PULSE 56
[2023-12-31 14:00] VITALS: BP 126/81; PULSE 51; RESP 16; TEMP 35.9; O2SAT 99
--- NOTE | 2023-12-31 15:00 | PM.DS ---
DS: Admitting Diagnosis Discharge Date 12/30 Admitting Diagnosis abd pain DS: Discharge Diagnosis Discharge Diagnosis (1) Crohn's disease: Qualifiers: Digestive disease complication type: other complication Gastrointestinal tract location: small intestine Qualified Code(s): K50.018 - Crohn's disease of small intestine with other complication Code(s): K50.90 - Crohn's disease, unspecified, without complications Status: Acute Assessment and Plan: - GI recommendations reviewed: Ok for clear liquids if tolerated Start prednisone taper to be continued as outpatient Patient to start Humira after discharge From a GI standpoint no need for intervention at this time will continue supportive care -will advance diet from full liquid- as tolerated it well so far (2) Partial small bowel obstruction: Code(s): K56.600 - Partial intestinal obstruction, unspecified as to cause Status: Acute Assessment and Plan: - seen per GI -recommendations reviewed Ok for clear liquids if tolerated Start prednisone taper to be continued as outpatient Patient to start Humira after discharge From a GI standpoint no need for intervention at this time will continue supportive care DS: Summary Hospital Course Hospital Course: Interval history: 58-year-old f with PMH/o depression he, vitamin-D deficiency, GERD and Crohn's with history of bowel obstructions who presented to the ER via private vehicle due to abdominal pain and vomiting. Patient had just been hospitalized the through the for bowel obstruction. She reports that diarrhea started back in April. In August she was diagnosed with Crohn's. narrative retrieved from h/p: Since that time she has been having intermittent recurrent episodes of generalized crampy almost colicky abdominal pain. She was admitted to the hospital to . She was treated with bowel rest pain medications fluids. She reported that she ate 1 solid meal prior to leaving. When she went home - she experienced increased pain after she ate. She went back on a clear liquid diet and was able to tolerate that initially but by this morning she was no longer able to tolerate clear liquids and was having recurrent vomiting. She reports that she had 1 mostly formed stool while she was hospitalized but has not had anything besides small amounts of mucus C brown mushy stool since then. She denies any fevers or chills or ill contacts. Patient is noted to be bradycardic but was bradycardic all the way throughout her last hospital stay. Her she denies any shortness of breath, cough congestion, changes in urinary urgency or dysuria. She was awaiting her prior authorization for Humira and had an appointment scheduled with her primary care physician and her technical sales consultant [place] who works with Dr. English tomorrow. 12/29- pt is seen and exmained today. she was seen per GI this morning and there is no intervention is needed from GI stand point. Medrol dose pack is ordered per gi and pt is to go home with taper. OK to advance diet to clear liquid and more if tolerated. if stable and tolerating food- will go home tomorrow Status at Discharge Functional status at discharge: independent ambulation Overall status at discharge: patient is back to baseline Time Spent with Patient Time attestation: Total time spent providing and/or coordinating discharge services: Time spent: Less than 30 minutes Exam Narrative: Weight 87.4 kg BMI 29.3 Const: General: comfortable Other: No acute distress, well-developed well-nourished, appears stated age HENMT: Other: Mucous membranes are tacky, no oral pharyngeal erythema, no scleral icterus Eyes: Other: No scleral icterus, no conjunctival pallor Neck: Other: No JVD, no lymphadenopathy Resp: Effort & Inspection: normal respiratory effort Other: Clear to auscultation bilaterally, no increased
--- NOTE | 2023-12-31 15:57 | WPDGIPROGNO ---
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 (2) SBO (small bowel obstruction): Code(s): K56.609 - Unspecified intestinal obstruction, unspecified as to partial versus complete obstruction Status: Acute Assessment and Plan: resolved due to Crohn's (3) Nausea and vomiting: Qualifiers: Vomiting type: projectile vomiting Qualified Code(s): R11.12 - Projectile vomiting Code(s): R11.2 - Nausea with vomiting, unspecified Status: Acute Assessment and Plan: resolved tolerating regular diet (4) Generalized abdominal pain: Code(s): R10.84 - Generalized abdominal pain Status: Acute Assessment and Plan: resolved Subjective Date/time seen: 12/31/23 15:57 Interval history: doing great, no more pain or nausea, in fact she tolerated diet and she is going home. Review of Systems Review of Systems: All systems reviewed & are unremarkable except as noted in HPI and below Exam Const: General: comfortable and no acute distress HENMT: Face/Nose/Sinus: Normal nares present Eyes: General: appearance normal, both eyes and all related structures Neck: Neck: no JVD Resp: Auscultation: clear to auscultation bilaterally Cardio: Rate: regular rate Rhythm: regular rhythm GI: Inspection: non-distended GI Palp: Yes Soft to palpation and No Tenderness to palpation present (GI) Auscultation: normal bowel sounds Skin: General skin exam: normal color Neuro: General: gait normal Speech: normal speech Extrem: General: normal to inspection Psych: Mental Status: mental status grossly normal Objective Data Vital Signs Vital Signs: Vital Signs - 24 hr 12/30/23 16:00 12/30/23 20:00 12/30/23 20:00 Temperature Pulse Rate 38 L 44 L Respiratory Rate Blood Pressure Pulse Oximetry Oxygen Delivery Room Air 12/30/23 20:35 12/31/23 00:00 12/31/23 04:00 Temperature 97.1 F L Pulse Rate 52 L 58 L 39 L Respiratory Rate 18 Blood Pressure 123/70 Pulse Oximetry 99 Oxygen Delivery 12/31/23 05:15 12/31/23 08:10 12/31/23 08:02 Temperature 96.5 F L Pulse Rate 47 L 42 L Respiratory Rate 20 Blood Pressure 117/73 Pulse Oximetry 100 Oxygen Delivery Room Air 12/31/23 14:00 Temperature 96.6 F L Pulse Rate 51 L Respiratory Rate 16 Blood Pressure 126/81 Pulse Oximetry 99 Oxygen Delivery Intake/Output Intake/Output: Intake & Output 12/28/23 12/29/23 12/30/23 12/31/23 23:59 23:59 23:59 23:59 Intake Total 1999 3334.1 1665.4 Balance 1999 3334.1 1665.4 Meds/Results Medications: Active Medications Generic Name Dose Route Start Last Admin Trade Name Freq PRN Reason Stop Dose Admin Enoxaparin Sodium 40 mg 12/30/23 09:00 12/31/23 08:10 Enoxaparin 40 Mg/0.4 Ml Syringe SUB-Q 40 mg DAILY CARMEN Administration Hydromorphone HCl 0.5 mg 12/29/23 20:38 12/30/23 20:58 Hydromorphone Hcl Inj (*Crx) 1 Mg/Ml Syr IV PUSH 0.5 mg Q4H PRN Administration Pain Rated 7-10 Sodium Chloride 1,000 mls @ 125 mls/hr 12/29/23 20:40 12/31/23 15:31 Normal Saline Iv IV CONT Not Given .Q8H CARMEN Methylprednisolone Sodium Succinate 40 mg 12/30/23 22:00 12/31/23 15:30 Methylprednisolone Sod Succ 125 Mg Vial IV PUSH 40 mg Q8HR CARMEN Administration Ondansetron HCl 4 mg 12/29/23 20:38 12/30/23 05:51 Ondansetron Inj 4 Mg/2 Ml Vial IV PUSH 4 mg Q4H PRN Administration N
--- NOTE | 2023-12-31 16:10 | PC.NURSE ---
Pt is A&O4 female that participated and contributed in plan of care. Pt denies any pain or nausea. Pt discharged home with family. Pt educated on discharge instructions and diet. Pt has been monitored for any changes in status while here.
== END 2023-12-31 15:50 | disposition home or self-care (01) ==
LOC: ANHED 16:02 → ANH3MEDSUR 21:13
PROVIDERS: Admitting Provider Internal Medicine; Emergency Provider Physician Assistant; PCP Family Medicine; Visit Provider Internal Medicine
DX: K50.012 Crohn's disease of small intestine with intestinal obstruction (principal); R74.01 Elevation of levels of liver transaminase levels; E78.5 Hyperlipidemia, unspecified; I67.1 Cerebral aneurysm, nonruptured; F41.9 Anxiety disorder, unspecified; F32.A Depression, unspecified; F12.90 Cannabis use, unspecified, uncomplicated; K21.9 Gastro-esophageal reflux disease without esophagitis; E55.9 Vitamin D deficiency, unspecified; F17.210 Nicotine dependence, cigarettes, uncomplicated
CPT/HCPCS: 36415; 74177; 80048; 80076; 81001; 83605; 83690; 85025; 93005; 96361; 96372; 96374; 96375; 96376; 99285; A9270; G0378; J1170; J1650; J2270; J2405; J2765; J2919; J7030; Q9967